=== PATIENT | female | born 1955 | race Caucasian/White ===

== ENCOUNTER 2016-10-26 08:37 | Day surgery (SDC) | payer OTHER, MEDICAID ==
[2016-10-26 09:29] LABS: HEMATOCRIT 36.7 % (36.0-47.0); HEMOGLOBIN 12.2 g/dL (12.0-15.5); HGB HCT DIFFERENCE -0.1; MEAN CORPUSCULAR HEMOGLOBIN 29.5 pg (27.0-33.4); MEAN CORPUSCULAR HGB CONC 33.2 g/dL (32.0-36.0); MEAN CORPUSCULAR VOLUME 89 fl (80-97); RED BLOOD COUNT 4.13 10^6/uL (3.72-5.28); RED CELL DISTRIBUTION WIDTH 16.3 % (11.5-14.0); WHITE BLOOD COUNT 3.1 10^3/uL (4.0-10.5)
[2016-10-26 09:40] LABS: PROTHROMBIN TIME 14.2 SEC (11.4-15.4)
[2016-10-26 09:41] LABS: PARTIAL THROMBOPLASTIN TIME 29.8 SEC (23.5-35.8)
[2016-10-26 09:48] LABS: BLOOD UREA NITROGEN 10 mg/dL (7-20); CREATININE RESULT 0.67 mg/dL (0.52-1.25)
[2016-10-26] MEDS ORDERED: MIDAZOLAM 2 MG/2 ML INJ ONE (11:27)
[2016-10-26] MEDS ORDERED: FENTANYL CITRATE INJ/PF 100 MCG/2 ML AMPUL ONE (11:28)
[2016-10-26 15:04] VITALS: BP 129/76
--- NOTE | 2016-10-27 08:24 | RADIOLOGY REPORT (SQ) ---
EXAM DESCRIPTION: CT BIOPSY BONE DEEP; CT NEEDLE PLACEMENT COMPLETED DATE/TIME: 10/26/2016 11:54 am; 10/26/2016 11:53 am REASON FOR STUDY: IMMUNE THROMBOCYTOPENIC PURPURA D69.3 IMMUNE THROMBOCYTOPENIC PURPURA COMPARISON: None. TECHNIQUE: CT guided biopsy of the pelvic bone marrow performed with conscious sedation. CT Fluoroscopy Time: 3.[address] scanners at this facility use dose modulation, iterative reconstruction, and/or weight based d osing when appropriate to reduce radiation dose to as low as reasonably achievable (ALARA). [facility]: Dose Right [facility]: CareDose [facility]: Dose Right [facility]: Teradose 4D [facility]: [facility] RADIATION DOSE: mGy. FINDINGS: The procedure was discussed with the patient and the patient agreed to the procedure. Prio r to the procedure, a time out was performed to verify the patient's identity and planned procedure. IV sedation was administered and physician direction by the registered nurse using 1 milligrams of Ve rsed and 75 micrograms of fentanyl. Physiologic monitoring was provided before, during, and after sed ation. The total sedation time was 35 minutes. Documentation face to face time, the performing proceduralist, spent monitoring the patient: [address] scanning was performed to localize the percutaneous site for the biopsy approach. After sterile skin prep and local lidocaine for skin and deep tissue anesthesia, a 14 gauge bone biop sy needle was used to obtain bone marrow aspirate and marrow core biopsy, received by Dr. Luann chau for outside interpretation. . There were no immediate complications. There were no immediate post biopsy or post sedation complications IMPRESSION: CT GUIDED BIOPSY OF THE RIGHT POSTERIOR ILIAC CREST BONE MARROW PERFORMED WITHOUT IMMEDI ATE COMPLICATION. PATHOLOGY PENDING. COMMENT: Quality ID 145: Final reports for procedures using fluoroscopy that document radiation exp osure indices, or exposure time and number of fluorographic images (if radiation exposure indices are not available) Patient medication list reviewed: Yes- Quality ID# [id number]:Eligible professional attests to documenting i n the medical record they obtained, updated, or reviewed the patient's current medications.. TECHNICAL DOCUMENTATION: JOB ID: [id number] Quality ID# [id number]: Final reports with documentation of one or more dose reduction techniques (e.g., Aut omated exposure control, adjustment of the mA and/or kV according to patient size, use of iterative r econstruction technique) 2010 [facility] [employer]- All Rights Reserved
== END 2016-10-26 14:05 | disposition home or self-care (01) ==
LOC: RAD 08:37
PROVIDERS: ATTEND Internal Medicine
PROC: 0QB23ZX Excision of Right Pelvic Bone, Percutaneous Approach, Diagnostic (ICD-10-PCS; principal; 2016-10-26)
DX: D69.3 Immune thrombocytopenic purpura (principal)
CPT/HCPCS: 36415; 82962; 84520; 82565; 85027; 85610; 85730; 77012; 20225; J2250; J3010

== ENCOUNTER 2016-12-07 08:52 | Day surgery (SDC) | payer OTHER, MEDICAID ==
[2016-12-07 09:33] LABS: PROTHROMBIN TIME 14.2 SEC (11.4-15.4)
[2016-12-07 09:34] LABS: PARTIAL THROMBOPLASTIN TIME 29.7 SEC (23.5-35.8)
[2016-12-07 09:47] LABS: BLOOD UREA NITROGEN 9 mg/dL (7-20); CREATININE RESULT 0.58 mg/dL (0.52-1.25)
[2016-12-07 09:48] LABS: HEMATOCRIT 37.8 % (36.0-47.0); HEMOGLOBIN 12.7 g/dL (12.0-15.5); HGB HCT DIFFERENCE 0.3; MEAN CORPUSCULAR HEMOGLOBIN 29.4 pg (27.0-33.4); MEAN CORPUSCULAR HGB CONC 33.7 g/dL (32.0-36.0); MEAN CORPUSCULAR VOLUME 88 fl (80-97); RED BLOOD COUNT 4.33 10^6/uL (3.72-5.28); RED CELL DISTRIBUTION WIDTH 15.8 % (11.5-14.0); WHITE BLOOD COUNT 3.7 10^3/uL (4.0-10.5)
[2016-12-07] MEDS ORDERED: MIDAZOLAM 2 MG/2 ML INJ ONE (10:55)
[2016-12-07] MEDS ORDERED: FENTANYL CITRATE INJ/PF 100 MCG/2 ML AMPUL ONE (10:55)
--- NOTE | 2016-12-07 13:18 | RADIOLOGY REPORT (SQ) ---
EXAM DESCRIPTION: CT BIOPSY LIVER; CT NEEDLE PLACEMENT COMPLETED DATE/TIME: 12/07/2016 12:17 pm REASON FOR STUDY: LIVER DISEASE UNSPECIFIED K76.89 OTHER SPECIFIED DISEASES OF LIVER D69.3 IMMUNE THROMBOCYTOPENIC PURPURA COMPARISON: None. TECHNIQUE: After obtaining informed consent, the patient was brought to the CT suite and was placed supine on the CT gurney. The patient was prepped and draped in the usual sterile fashion . Axial ly ges were obtained for targeting of theright lobe liver. An appropriate access site was selected. IV s edation was administered and physician direction by the registered nurse using 1 milligrams of Versed and 75 micrograms of fentanyl. Physiologic monitoring was provided before, during, and after sedatio n. The total sedation time was 30 minutes. Documentation face to face time, the performing proceduralist, spent monitoring the patient: 10minute s. Noncontrasted CT of the liver was performed to localize an approach for the right lobe liver biopsy. A percutaneous site was marked. Time out was performed. After skin prep and local lidocaine for skin and deep tissue anesthesia, a coaxial biopsy needle sys tem was used to obtain several cores of tissue from the right lobe liver. These were submitted to e lab in formalin. Biopsy tract was embolized with a Gelfoam plug. No immediate postprocedure compl ications. Total of 5.[address] fluoro was used. All CT scanners at this facility use dose modulation, iterative reconstruction, and/or weight based d osing when appropriate to reduce radiation dose to as low as reasonably achievable (ALARA). [facility]: Dose Right [facility]: CareDose [facility]: Dose Right [facility]: Teradose 4D [facility]: [employer] RADIATION DOSE: Up-to-date CT equipment and radiation dose reduction techniques were employed. CTDIv ol: 4.0 - 20.4 mGy. DLP: 501 mGy-cm. mGy. LIMITATIONS: None. FINDINGS: CT guided liver biopsy as detailed above. IMPRESSION: CT GUIDED RIGHT LOBE LIVER BIOPSY PERFORMED ABOVE. PATHOLOGY PENDING. NO IMMEDIATE COMPLICATIONS. COMMENT: Patient medication list reviewed:Yes- Quality ID# [id number]:Eligible professional attests to docu menting in the medical record they obtained, updated, or reviewed the patient's current medications.. Quality ID 145: Final reports for procedures using fluoroscopy that document radiation exposure [place], or exposure time and number of fluorographic images (if radiation exposure indices are not avail able) TECHNICAL DOCUMENTATION: JOB ID: [id number] Quality ID # [id number]: Final reports with documentation of one or more dose reduction techniques (e.g., A utomated exposure control, adjustment of the mA and/or kV according to patient size, use of iterative reconstruction technique) 2010 [employer]- All Rights Reserved
[2016-12-07 14:02] VITALS: BP 135/74
== END 2016-12-07 13:50 | disposition home or self-care (01) ==
LOC: RAD 08:52
PROVIDERS: ATTEND Internal Medicine
PROC: 0FB13ZX Excision of Right Lobe Liver, Percutaneous Approach, Diagnostic (ICD-10-PCS; principal; 2016-12-07)
DX: D69.3 Immune thrombocytopenic purpura (principal); K75.81 Nonalcoholic steatohepatitis (NASH); K74.0 Hepatic fibrosis
CPT/HCPCS: 36415; 82962; 84520; 82565; 85027; 85610; 85730; 88305 ×2; 88313 ×2; 77012; 47000; J2250; J3010

== ENCOUNTER 2017-01-04 17:27 | Emergency (ER) | payer OTHER, MEDICAID ==
[2017-01-04] MEDS ORDERED: OXYCODONE-ACETAMINOPHEN 5-325 MG TABLET PO ONE (18:38)
--- NOTE | 2017-01-04 18:41 | ER Document Report ---
ED Hand/Wrist Injury - General Chief Complaint: Wrist Injury Stated Complaint: ARM INJURY Mode of Arrival: Ambulatory Information source: Patient TRAVEL OUTSIDE OF THE [place] IN LAST 30 DAYS: No - HPI Injury to: Wrist Onset: Just prior to arrival Where: Home Timing: Constant Quality of pain: Achy Severity: Moderate Context: Fall Notes: Patient arrives with complaints of left wrist pain. She states that she was walking on a rotted apply board when her leg went through the board she fell and tried to catch herself with her left hand. She notes has tenderness and swelling to the left wrist. She denies striking her head. She denies loss of consciousness. She denies any other injuries. She denies any numbness, tingling, weakness. She has no other complaints at this time. - Related Data Allergies/Adverse Reactions: exenatide [From [place]] Allergy (Verified 01/04/17 17:44) Past Medical History - Social History Smoking Status: Former Smoker Chew tobacco use (# tins/day): No Frequency of alcohol use: None Drug Abuse: None Family History: Reviewed & Not Pertinent Patient has suicidal ideation: No - Past Medical History Cardiac Medical History: Reports: Hx Hypertension Denies: Hx Coronary Artery Disease, Hx Heart Attack Pulmonary Medical History: Reports: Hx Bronchitis, Hx COPD Denies: Hx Asthma, Hx Pneumonia Neurological Medical History: Denies: Hx Cerebrovascular Accident, Hx Seizures Endocrine Medical History: Reports: Hx Diabetes Mellitus Type 2 Renal/ Medical History: Denies: Hx Peritoneal Dialysis GI Medical History: Reports: Hx Gastroesophageal Reflux Disease Musculoskeltal Medical History: Reports Hx Arthritis Past Surgical History: Reports: Hx Hysterectomy, Hx Orthopedic Surgery - R Hand - Immunizations Immunizations up to date: Yes Hx Diphtheria, Pertussis, Tetanus Vaccination: Yes Hx Pneumococcal Vaccination: 12/24/14 Review of Systems - Review of Systems -: Yes All other systems reviewed and negative Physical Exam - Vital signs Vitals: Temp Pulse Resp BP Pulse Ox 98.3 F 99 24 H 136/82 H 97 01/04/17 17:46 01/04/17 17:46 01/04/17 17:46 01/04/17 17:46 01/04/17 17:46 - Notes Notes: GENERAL: alert, cooperative, nontoxic, no distress. HEAD: normocephalic, atraumatic EYES: conjunctiva pink without discharge, no external redness or swelling. EARS: no external swelling, no external redness NOSE: atraumatic, no external swelling MOUTH/THROAT: mucous membranes moist and pink NECK: soft, supple, full range of motion, no meningismus. CHEST: no distress, lungs clear and equal throughout. No wheezing, rales, rhonchi. CARDIAC: regular rate and rhythm, no murmur, normal capillary refill, normal pulses. BACK: full range of motion, no CVA tenderness. EXTREMITIES: Swelling and tenderness to palpation of the left wrist with possible mild deformity noted. No snuffbox tenderness. Normal pulse and sensation distally. Slightly limited range of motion secondary to pain. No redness. NEURO: alert and oriented 3, no focal deficits, full range of motion of all extremities. PYSCH: appropriate mood, affect. Patient is cooperative. SKIN: pink, warm, dry, no rash. Course - Re-evaluation Re-evalutation: 01/04/17 19:19 Patient is nontoxic appearing with stable vitals. The patient fell and caught herself with her left hand causing an injury to the left wrist. She denies any other injuries. She is noted to have some swelling and tenderness to the wrist. No snuffbox tenderness. There is no redness or signs of infection. Her compartments are soft. X-rays show no acute fracture per the radiologist. The patient will be placed in a Velcro cock-up splint. Follow-up with her orthopedist if not better in 1 week, sooner for increased pain, fever, redness, any further concerns. She was instructed to rest, ice, elevate her wrist. 01/04/17 19:20 The patient is noted to have elevated blood pressure during today's emergency department visit. The patient was informed of this finding. The patient was instructed that this may be related to pre-hypertension and requires further evaluation with a primary care provider. The patient has no hypertensive symptoms at this time. The patient's emergency department workup and current diagnosis were explained to the patient and or family. Follow-up instructions were provided. Medications if prescribed were discussed. Instructions for when to return to the emergency department including specific worrisome symptoms were discussed with the patient and/or family. - Vital Signs Vital signs: Temp Pulse Resp BP Pulse Ox 98.3 F 99 24 H 136/82 H 97 01/04/17 17:46 01/04/17 17:46 01/04/17 17:46 01/04/17 17:46 01/04/17 17:46 - Diagnostic Test Radiology reviewed: Image reviewed, Reports reviewed - No acute fracture of the left wrist Procedures - Immobilization Left wrist Pre-Proc Neuro Vasc Exam: Normal Immobilizer type: Cock-up Performed by: PCT Post-Proc Neuro Vasc Exam: Normal Alignment checked and good: Yes Discharge - Discharge Clinical Impression: Left wrist sprain Qualifiers: Encounter type: initial encounter Qualified Code(s): S63.502A - Unspecified sprain of left wrist, initial encounter Condition: Stable Disposition: HOME, SELF-CARE Instructions: Wrist Sprain ([facility]) Additional Instructions: Wear splint as needed for comfort. Rest, ice, elevate your wrist as needed for pain. Take your normal Percocet as needed for pain. Follow-up with your orthopedist if not better in 1 week, sooner for increased pain, fever, weakness , or any further concerns. Your blood pressure was elevated during today's visit. Have this rechecked with your doctor. Forms: Elevated Blood Pressure Referrals: [facility] [Provider Group] - Follow up as needed
--- NOTE | 2017-01-04 19:10 | RADIOLOGY REPORT (SQ) ---
EXAM DESCRIPTION: WRIST LEFT 3 VIEWS COMPLETED DATE/TIME: 01/04/2017 6:48 pm REASON FOR STUDY: PAIN COMPARISON: None. NUMBER OF VIEWS: Three views. TECHNIQUE: AP, lateral, and oblique radiographic images acquired of the left wrist. LIMITATIONS: None. FINDINGS: MINERALIZATION: Normal. BONES: No acute fracture or dislocation. No worrisome bone lesions. Normal alignment. SOFT TISSUES: No soft tissue swelling. No foreign body. OTHER: No other significant finding. IMPRESSION: NEGATIVE STUDY OF THE LEFT WRIST. NO RADIOGRAPHIC EVIDENCE OF ACUTE INJURY. TECHNICAL DOCUMENTATION: JOB ID: [id number] [employer]- All Rights Reserved
[2017-01-04 19:58] VITALS: BP 141/75
== END 2017-01-04 19:49 | disposition home or self-care (01) ==
LOC: ER 17:27
DX: S63.502A Unspecified sprain of left wrist, initial encounter (principal); W13.3XXA Fall through floor, initial encounter; Y92.009 Unspecified place in unspecified non-institutional (private) residence as the place of occurrence of the external cause; M25.532 Pain in left wrist; J44.9 Chronic obstructive pulmonary disease, unspecified; I10 Essential (primary) hypertension; E11.9 Type 2 diabetes mellitus without complications; Z88.8 Allergy status to other drugs, medicaments and biological substances; Z87.891 Personal history of nicotine dependence
CPT/HCPCS: 99283; 73110; L3908 ×2

== ENCOUNTER → 2017-05-31 | Day surgery (SDC) | payer OTHER, MEDICAID ==
[~2017-05-31] MED LIST: BUPIVACAINE HCL 0.5 % INJ/PF 30 ML SDV ONE
--- NOTE | 2017-05-31 10:02 | Operative Report ---
PROCEDURE: KNEE RADIOFREQUENCY right under ultrasound guidance Preoperative Diagnosis: Right knee osteoarthritis Postoperative Diagnosis: Right knee osteoarthritis 1. Superolateral genicular branch from the vastus lateralis 2. Superomedial genicular branch from the vastus medialis 3. Inferomedial genicular branch from the saphenous nerve 4. Medial retinacular branch from the vastus intermedius DATE OF PROCEDURE: May 31, 2017 ANESTHESIA: Local anesthesia COMPLICATIONS: None reported PROCEDURE IN DETAIL: Hx/PE/meds/allergies/applicable labs reviewed. No changes and no contraindications were found. Full description of the procedure was provided including benefits as well as possible complications including transient increased pain, stomach irritation, mood alteration, transient weakness or parasthesias as well as more serious nerve injury, bleeding, infection or allergic reaction. Informed consent was obtained and documented. The patient was brought to the procedure room and placed on the exam table in a comfortable supine position. The place for needle placement was obtained by manual palpation with ultrasound confirmation. The sterile field was prepared by chloroprep and sterile drapes. Local anesthesia superficial and deep was provided by local infiltration of 2% lidocaine. A 17g 50 mm radiofrequency introducer needle with a 4 mm active tip was placed overlying the right knee joint and using ultrasound guidance the needle was advanced to a bony endpoint on the superiolateral portion of the femoral condyle of the right knee. A second needle was advanced to a bony endpoint on the superiomedial portion of the femoral condyle. A third needle was then placed over the inferiomedial portion of the tibial condyle until a bony endpoint was met. 4th needle placed 3mm above the patella. Attempted aspiration yielded no blood. Transverse ultrasound views showed all the needles at 50% depth of the femur and tibia. Motor stimulation was tested at 2.0 volts with no leg movement. Images were saved in AP and lateral. A mixture consisting of 0.5% bupivacaine was slowly injected. Then a radiofrequency ablation of each of the geniculate nerves were done at 80 degrees Celsius for 2 minutes and 30 seconds each. The needles were withdrawn. The patient tolerated the procedure well. After observation the patient was discharged with instructions and follow up. They were also provided contact information to call regarding any concerning symptoms or questions. IMPRESSION: 1. Successful geniculate right knee radiofrequency ablation was performed. 2. The patient was given prescription of home medicines. 3. RTC in 1-2 week(s).
== END ==
LOC: RAD 08:31
PROVIDERS: ATTEND Family Medicine
PROC: 3E0T3TZ Introduction of Destructive Agent into Peripheral Nerves and Plexi, Percutaneous Approach (ICD-10-PCS; principal; 2017-05-31)
DX: M17.11 Unilateral primary osteoarthritis, right knee (principal)
CPT/HCPCS: 64640 ×3; J3490

== ENCOUNTER 2017-08-13 07:46 | Inpatient (IN) | payer OTHER, MEDICAID ==
--- NOTE | 2017-08-10 13:09 | Physician Advisory Note ---
Physician Advisor ProgressNote .: [facility] I have reviewed the medical record for this patient. Physician Advisor Statement: "Surgical necessity": Nonsurgical options tried, ADLs interfered with, & exam findings are nicely documented in H&P. Attending, please document the specific pre-op x-ray/scan findings present that [facility] looks for: subchondral cysts, subchondral sclerosis, periarticular osteophytes, joint space narrowing, joint subluxation, AVN/osteonecrosis, to support the reasoning that [facility] should pay for surgery in this case. Status: 61yo with DM/HTN/morbid obesity, having trouble with walking & getting in/out car, not sufficiently improved by NSAIDS, oxycodone 10mg, Voltaren topical, cortisone injections, & ablation. Per pre-op nurse review notes, she is extremely limited in her overall function, and is expected to require SNF rehab after surgery. Therefore, per current [facility] guidelines, appropriate for TKA as Inpatient. Thanks! CK
[~2017-08-13 07:46] MED LIST changes: +ACETAMINOPHEN 100 ML IV ONE; -BUPIVACAINE HCL 0.5 % INJ/PF 30 ML SDV ONE; +BUPIVACAINE INJ/PF LIPOSOME/PF 266 MG/20 ML SDV IJ PRN; +CEFAZOLIN INJ 1 GM VIAL IV PRN; +DEXAMETHASONE SOD PHOSPHATE INJ 4 MG/1 ML VIAL ONE; +FENTANYL CITRATE INJ/PF 100 MCG/2 ML AMPUL ONE; +IBUPROFEN 800 MG/NS 250 ML IV PRN; +LACTATED RINGERS 1000 ML IV PRN; +LANSOPRAZOLE 15 MG TAB.RAP.DR PO PRN; +LIDOCAINE 0.5% INJ-PF (5 MG/ML) 50 ML SDV SUBCUT PRN; +LIDOCAINE 2% INJ-PF (20 MG/ML) 10 ML AMPUL ONE; +METOCLOPRAMIDE HCL INJ/PF 10 MG/2 ML SDV ONE; +MIDAZOLAM 2 MG/2 ML INJ ONE; +ONDANSETRON HCL INJ/PF 4 MG/2 ML SDV ONE; +OXYCODONE HCL SR 10 MG TABLET PO PRN; +PROPOFOL INJ 200 MG/20 ML VIAL IV ONE; +TETRACAINE HCL/PF 20MG/2ML AMPULE (SPINAL) ONE; +VANCOMYCIN HCL 1,000 MG in DEXTROSE 5%-WATER 250 ML IV PRN
[2017-08-13] MEDS ORDERED: THROMBIN (BOVINE) 5000 UNIT EPITAXIS KIT ONE (09:09)
[2017-08-13] MEDS ORDERED: THROMBIN (BOVINE) TOPICAL 20000 UNIT VIAL ONE (09:09)
[2017-08-13] MEDS ORDERED: BUPIVACAINE INJ/PF LIPOSOME/PF 266 MG/20 ML SDV ONE (09:09)
[2017-08-13] MEDS ORDERED: ALBUTEROL SULFATE 0.083% NEB 2.5 MG/3 ML AMPUL NEB ONE (09:26)
[2017-08-13] MEDS ORDERED: FENTANYL CITRATE INJ/PF 100 MCG/2 ML AMPUL ONE ×2 (10:43→10:44)
[2017-08-13] MEDS ORDERED: FENTANYL CITRATE INJ/PF 100 MCG/2 ML AMPUL IV PRN ×3 (10:50)
[2017-08-13] MEDS ORDERED: PROMETHAZINE HCL INJ 25 MG/1 ML VIAL IV PRN ×2 (10:50)
[2017-08-13] MEDS ORDERED: MORPHINE SULFATE 10 MG/ML INJ IV PRN ×3 (10:50→11:13)
[2017-08-13] MEDS ORDERED: MEPERIDINE HCL/PF INJ 25 MG/1 ML DISP.SYRIN IV PRN (10:50)
[2017-08-13] MEDS ORDERED: ONDANSETRON HCL INJ/PF 4 MG/2 ML SDV IV PRN ×3 (10:50→15:00)
[2017-08-13] MEDS ORDERED: DIPHENHYDRAMINE HCL 50 MG/ML VIAL IV PRN ×2 (10:50→11:13)
--- NOTE | 2017-08-13 11:12 | Operative Report ---
Operative Report DATE OF SURGERY: 08/13/17 PREOPERATIVE DIAGNOSIS: Right knee arthritis OPERATION: Right knee arthroplasty SURGEON: ARLETTE BRADY ANESTHESIA: GA TISSUE REMOVED OR ALTERED: Bone to pathology ESTIMATED BLOOD LOSS: 150 PROCEDURE: Implants used: Femur: Philpot triathlon size 5 CR femur Tibia: 4 tibia Tibial liner: 9 mm CS spacer Patella: 32 mm oval patella Procedure with the patient supine on the operating table the right the limb is prepped and draped in a sterile fashion. The limb was elevated for exsanguination and the tourniquet inflated to 280 torr. A standard midline median parapatellar approach the knee is taken. Access is gained to the femoral canal through the intercondylar notch. Intramedullary alignment instrumentation used to resect 10 mm of distal femur in 5 of valgus. Sizing guide indicated a size 5 femur. Appropriate cutting jig is then used to fashion anterior posterior and chamfer cuts. A trial reduction femurs performed and this is judged to be adequate. Attention was next turned to the tibia. Using an extra medullary alignment system 9 millimeters was resected off the lateral tibial plateau. This is sized to a size 4 tibia. A trial reduction was now performed with a 5 femur and a for tibia using a 9 millimeters spacer. It is full extension and central patellofemoral tracking. The articular surface the patella was next resected using an oscillating saw. All trial implants were removed. Polymethylmethacrylate is mixed and used to cement the above implants in place. On adequate curing the cement excess cement was removed the tourniquet was deflated hemostasis obtained the wound is then closed in layers using interrupted Vicryl followed by bob. A sterile compressive dressing was applied and the patient returned to recovery room in satisfactory condition.
[2017-08-13] MEDS ORDERED: ONDANSETRON 4 MG TAB.RAPDIS PO PRN ×2 (11:13→15:00)
[2017-08-13] MEDS ORDERED: ACETAMINOPHEN 325 MG TABLET PO PRN (11:13)
[2017-08-13] MEDS ORDERED: MAG HYDROX/AL HYDROX/SIMETH SUSP 30 ML UDCUP PO PRN (11:13)
[2017-08-13] MEDS ORDERED: RINGERS SOLUTION,LACTATED 1,000 ML IV PRN (11:13)
[2017-08-13] MEDS: FENTANYL CITRATE INJ/PF 100 MCG/2 ML AMPUL ONE ×2 (11:45→11:50)
[2017-08-13] MEDS ORDERED: LORAZEPAM INJ 2 MG/1 ML VIAL ONE (12:00)
--- NOTE | 2017-08-13 12:14 | RADIOLOGY REPORT (SQ) ---
EXAM DESCRIPTION: KNEE RIGHT 2 VIEWS COMPLETED DATE/TIME: 08/13/2017 11:57 am REASON FOR STUDY: Post OP -Long Cassette in PACU M17.11 UNILATERAL PRIMARY OSTEOARTHRITIS, RIGHT KN EE COMPARISON: None. NUMBER OF VIEWS: AP and lateral portable films TECHNIQUE: Digital radiographic images of the right knee post-procedure. LIMITATIONS: None. FINDINGS: BONES: No worrisome or unexpected findings post-procedure. DEVICE: Right total knee replacement with patellar resurfacing SOFT TISSUES: No worrisome findings. Expected postoperative soft tissue changes. IMPRESSION: SATISFACTORY POSTOPERATIVE RIGHT KNEE. TECHNICAL DOCUMENTATION: JOB ID: [id number] [employer]- All Rights Reserved Reading location - IP/workstation name: [email or web address]
[2017-08-13] MEDS ORDERED: TRANEXAMIC ACID INJ/PF 1,000 MG/10 ML SDV IV ONE ×2 (12:29→13:00)
[2017-08-13] MEDS ORDERED: ASPIRIN 81 MG TABLET, ENT COATED PO ONE (13:00)
[2017-08-13] MEDS ORDERED: DEXTROSE 50%-WATER SYRINGE 25 GM/50 ML DOSE IV PRN (13:25)
[2017-08-13] MEDS ORDERED: DEXTROSE 40% GEL 15 GM TUBE X 2 PO PRN (13:25)
[2017-08-13] MEDS ORDERED: DEXTROSE 40% GEL 15 GM TUBE PO PRN (13:25)
[2017-08-13] MEDS ORDERED: DEXTROSE 50%-WATER SYRINGE 12.5 GM/25 ML DOSE IV PRN (13:25)
[2017-08-13] MEDS ORDERED: GLUCAGON,HUMAN RECOMB 1 MG INJ IM PRN (13:25)
[2017-08-13] MEDS: PREGABALIN 100 MG CAPSULE PO SCH ×2 (14:23→18:34)
[2017-08-13] MEDS: MORPHINE SULFATE 10 MG/ML INJ IM PRN ×3 (15:05→20:50)
[2017-08-13] MEDS: INSULIN LISPRO 100 UNIT/ML 3 ML VIAL SUBCUT PRN ×3 (17:12→23:19)
[2017-08-13] MEDS: OXYCODONE HCL IR 5 MG TABLET PO PRN (17:13)
[2017-08-13] MEDS: SENNOSIDES/DOCUSATE 8.6-50 MG 1 EACH TABLET PO SCH (18:34)
[2017-08-13] MEDS: OXYCODONE HCL SR 10 MG TABLET PO SCH (22:21)
[2017-08-13] MEDS: IBUPROFEN 800 MG in NORMAL SALINE 250 ML IV SCH (22:21)
[2017-08-13] MEDS ORDERED: VANCOMYCIN HCL 1,000 MG in DEXTROSE 5%-WATER 250 ML IV ONE (23:13)
[2017-08-14] MEDS: MORPHINE SULFATE 10 MG/ML INJ IV PRN (03:57)
[2017-08-14] MEDS: LANSOPRAZOLE 30 MG TAB.RAP.DR PO SCH (06:03)
[2017-08-14] MEDS: OXYCODONE HCL IR 5 MG TABLET PO PRN ×2 (06:03→13:23)
[2017-08-14] MEDS: IBUPROFEN 800 MG in NORMAL SALINE 250 ML IV SCH ×3 (06:04→21:40)
[2017-08-14] MEDS: INSULIN LISPRO 100 UNIT/ML 3 ML VIAL SUBCUT PRN ×3 (06:46→17:52)
[2017-08-14 07:14] LABS: HEMATOCRIT 32.8 % (36.0-47.0); HEMOGLOBIN 10.8 g/dL (12.0-15.5); MEAN CORPUSCULAR HEMOGLOBIN 29.4 pg (27.0-33.4); MEAN CORPUSCULAR VOLUME 89 fl (80-97); RED BLOOD COUNT 3.68 10^6/uL (3.72-5.28); RED CELL DISTRIBUTION WIDTH 16.1 % (11.5-14.0); WHITE BLOOD COUNT 7.2 10^3/uL (4.0-10.5)
--- NOTE | 2017-08-14 07:25 | PDOC PROGRESS REPORT ---
Subjective Progress Note for:: 08/14/17 Reason For Visit: M17.11 UNILATERAL PRIMARY OSTEOARTHRITIS, RIGHT KN 61-year-old white female postop day 1 from right knee arthroplasty. Limited progress with physical therapy yesterday. Physical Exam Vital Signs: Temp Pulse Resp BP Pulse Ox 37.0 C 109 H 16 144/75 H 94 08/13/17 23:00 08/13/17 23:00 08/13/17 23:00 08/13/17 23:00 08/13/17 23:00 Intake & Output 08/13/17 08/14/17 08/15/17 06:59 06:59 06:59 Intake Total 3072 Output Total 1999 Balance 1072 Weight 118.7 kg General appearance: PRESENT: no acute distress, obese Head exam: PRESENT: normocephalic Respiratory exam: PRESENT: unlabored Cardiovascular exam: PRESENT: RRR Pulses: PRESENT: +1 pedal pulses bilateral Vascular exam: PRESENT: normal capillary refill GI/Abdominal exam: PRESENT: soft Rectal exam: PRESENT: deferred Extremities exam: PRESENT: other - Right knee dressing change today. Wound is well approximated with bob. Minimal erythema. Scant serosanguineous drainage. Neurological exam: PRESENT: alert, awake, oriented to person, oriented to place , oriented to time, oriented to situation. ABSENT: motor sensory deficit Psychiatric exam: PRESENT: appropriate affect, normal mood. ABSENT: homicidal ideation, suicidal ideation Skin exam: PRESENT: dry, intact, warm. ABSENT: cyanosis, rash Results Impressions: Knee X-Ray 08/13/17 11:14 IMPRESSION: SATISFACTORY POSTOPERATIVE RIGHT KNEE. Status: Imported from PACS Assessment & Plan - Diagnosis (1) Arthritis of right knee Is this a current diagnosis for this admission?: Yes Plan: Patient to continue with postoperative physical therapy for rehabilitation. Anticipate discharge home tomorrow with home health services - Time Time Spent with patient: 15-24 minutes Anticipated discharge: Home with Homehealth Within: within 24 hours
[2017-08-14 07:32] LABS: ANION GAP 14 (5-19); BLOOD UREA NITROGEN 15 mg/dL (7-20); CALCIUM 8.4 mg/dL (8.4-10.2); CARBON DIOXIDE 28 mmol/L (22-30); CHLORIDE 96 mmol/L (98-107); GLUCOSE 336 mg/dL (75-110); POTASSIUM 4.5 mmol/L (3.6-5.0)
[2017-08-14 07:47] LABS: PLATELET COUNT 97 10^3/uL (150-450)
[2017-08-14] MEDS: PREGABALIN 100 MG CAPSULE PO SCH ×3 (09:23→17:52)
[2017-08-14] MEDS: SENNOSIDES/DOCUSATE 8.6-50 MG 1 EACH TABLET PO SCH ×2 (09:23→17:51)
[2017-08-14] MEDS: OXYCODONE HCL SR 10 MG TABLET PO SCH ×2 (09:24→21:40)
[2017-08-14] MEDS: PRENATAL VITAMIN W DHA CAPSULE PO SCH (09:24)
[2017-08-14] MEDS: MORPHINE SULFATE 10 MG/ML INJ IM PRN ×4 (11:36→23:13)
[2017-08-14] MEDS: ASPIRIN 81 MG TABLET, ENT COATED PO SCH (17:33)
[2017-08-14] MEDS: INSULIN NPH (ISOPHANE), HUMAN 100 UNIT/ML 3 ML SUBCUT SCH (21:27)
[2017-08-14] MEDS: ZOLPIDEM TARTRATE 5 MG TABLET PO PRN (21:40)
[2017-08-15] MEDS: IBUPROFEN 800 MG in NORMAL SALINE 250 ML IV SCH ×3 (05:47→21:19)
[2017-08-15] MEDS: LANSOPRAZOLE 30 MG TAB.RAP.DR PO SCH (05:47)
[2017-08-15 06:01] LABS: HEMATOCRIT 27.8 % (36.0-47.0); HEMOGLOBIN 9.2 g/dL (12.0-15.5); MEAN CORPUSCULAR HEMOGLOBIN 29.7 pg (27.0-33.4); MEAN CORPUSCULAR HGB CONC 33.3 g/dL (32.0-36.0); MEAN CORPUSCULAR VOLUME 89 fl (80-97); RED BLOOD COUNT 3.11 10^6/uL (3.72-5.28); RED CELL DISTRIBUTION WIDTH 15.8 % (11.5-14.0); WHITE BLOOD COUNT 5.6 10^3/uL (4.0-10.5)
[2017-08-15 06:27] LABS: PLATELET COUNT 86 10^3/uL (150-450)
--- NOTE | 2017-08-15 07:14 | PDOC PROGRESS REPORT ---
Subjective Progress Note for:: 08/15/17 Reason For Visit: M17.11 UNILATERAL PRIMARY OSTEOARTHRITIS, RIGHT KN 61-year-old white female male now postop day 2 from right knee arthroplasty. Patient is quite angry this morning stating that she is not getting adequate pain relief and is not sleeping. Physical Exam Vital Signs: Temp Pulse Resp BP Pulse Ox 37.1 C 117 H 18 123/60 97 08/15/17 03:53 08/15/17 03:53 08/15/17 03:53 08/15/17 03:53 08/15/17 03:53 Intake & Output 08/14/17 08/15/17 08/16/17 06:59 06:59 06:59 Intake Total 3696 1716 Output Total 1999 100 Balance 1696 1616 Weight 118.7 kg 118.4 kg General appearance: PRESENT: no acute distress, mild distress Head exam: PRESENT: normocephalic Respiratory exam: PRESENT: unlabored Cardiovascular exam: PRESENT: RRR Extremities exam: PRESENT: other - Right knee dressing is into this morning. Wound edges are well approximated with bob. There is no erythema. There is scant serosanguineous drainage at the distal third of the incision. Neurological exam: PRESENT: alert, awake, oriented to person, oriented to place , oriented to time, oriented to situation. ABSENT: motor sensory deficit Psychiatric exam: PRESENT: agitated Skin exam: PRESENT: dry, intact, warm. ABSENT: cyanosis, rash Results Laboratory Results: 08/15/17 04:40 08/14/17 06:16 08/14/17 08/14/17 08/15/17 06:16 06:16 04:40 WBC 7.2 5.6 RBC 3.68 L 3.11 L Hgb 10.8 L 9.2 L Hct 32.8 L 27.8 L MCV 89 89 MCH 29.4 29.7 MCHC 33.0 33.3 RDW 16.1 H 15.8 H Plt Count 97 L 86 L Sodium 138.0 Potassium 4.5 Chloride 96 L Carbon Dioxide 28 Anion Gap 14 BUN 15 Creatinine 0.51 L Est GFR ( Amer) > 60 Est GFR (Non-Af Amer) > 60 Glucose 336 H Calcium 8.4 Impressions: Knee X-Ray 08/13/17 11:14 IMPRESSION: SATISFACTORY POSTOPERATIVE RIGHT KNEE. Status: Imported from PACS Assessment & Plan - Diagnosis (1) Arthritis of right knee Is this a current diagnosis for this admission?: Yes Plan: 61-year-old white female postop day 2 from right knee arthroplasty. Patient states this morning that she has nobody at home and is [facility] in a [facility] facility. Social work has been consulted for this. - Time Time Spent with patient: 15-24 minutes Anticipated discharge: SNF Within: within 24 hours, when bed available
[2017-08-15] MEDS: INSULIN LISPRO 100 UNIT/ML 3 ML VIAL SUBCUT PRN ×3 (08:24→17:41)
[2017-08-15] MEDS: INSULIN NPH (ISOPHANE), HUMAN 100 UNIT/ML 3 ML SUBCUT SCH ×2 (10:13→21:18)
[2017-08-15] MEDS: PREGABALIN 100 MG CAPSULE PO SCH ×3 (10:14→17:42)
[2017-08-15] MEDS: OXYCODONE HCL SR 10 MG TABLET PO SCH (10:14)
[2017-08-15] MEDS: PRENATAL VITAMIN W DHA CAPSULE PO SCH (10:14)
[2017-08-15] MEDS: SENNOSIDES/DOCUSATE 8.6-50 MG 1 EACH TABLET PO SCH ×2 (10:14→17:43)
[2017-08-15] MEDS: OXYCODONE HCL IR 5 MG TABLET PO PRN ×2 (14:27→21:19)
[2017-08-15] MEDS: ASPIRIN 81 MG TABLET, ENT COATED PO SCH (17:43)
[2017-08-15] MEDS: MORPHINE SULFATE 10 MG/ML INJ IM PRN ×2 (20:10→23:54)
[2017-08-15] MEDS: ZOLPIDEM TARTRATE 5 MG TABLET PO PRN (21:18)
[2017-08-16] MEDS: MORPHINE SULFATE 10 MG/ML INJ IM PRN ×3 (02:27→17:17)
[2017-08-16 05:14] LABS: HEMATOCRIT 27.7 % (36.0-47.0); HEMOGLOBIN 9.3 g/dL (12.0-15.5); MEAN CORPUSCULAR HEMOGLOBIN 29.9 pg (27.0-33.4); MEAN CORPUSCULAR HGB CONC 33.6 g/dL (32.0-36.0); MEAN CORPUSCULAR VOLUME 89 fl (80-97); RED BLOOD COUNT 3.11 10^6/uL (3.72-5.28); RED CELL DISTRIBUTION WIDTH 15.9 % (11.5-14.0); WHITE BLOOD COUNT 4.7 10^3/uL (4.0-10.5)
[2017-08-16] MEDS: IBUPROFEN 800 MG in NORMAL SALINE 250 ML IV SCH ×2 (05:17→14:04)
[2017-08-16] MEDS: LANSOPRAZOLE 30 MG TAB.RAP.DR PO SCH (05:17)
[2017-08-16 05:36] LABS: PLATELET COUNT 93 10^3/uL (150-450)
--- NOTE | 2017-08-16 06:48 | PDOC TRANSFER SUMMARY ---
General - Admit/Disc Date/PCP Admission Date/Primary Care Provider: 08/13/17 07:46 DAMIEN ANNA MD Discharge Date: 08/16/17 - Discharge Diagnosis (1) Arthritis of right knee Is this a current diagnosis for this admission?: Yes - Additional Information Resuscitation Status: Full Code Discharge Diet: As Tolerated, Regular Discharge Activity: Balance Activity w/Rest, No Driving, No tub bath Home Medications: Cyclobenzaprine HCl 10 mg PO BID PRN 11/23/15 Diclofenac Sodium [Voltaren] 100 gm TP DAILY 11/23/15 Insulin Aspart [Novolog Flexpen] 0 unit SUBCUT .SLD SCALE PRN 11/23/15 Liraglutide [Victoza 2-Cornelio] 1.8 units DAILY 11/23/15 Oxycodone HCl 10 mg PO Q4 PRN 11/23/15 Trazodone HCl 100 mg PO DAILYP PRN 11/23/15 Pregabalin [Lyrica] 100 mg PO TID 10/26/16 Ipratropium/Albuterol Sulfate [Combivent Respimat 4 gm Mdi] 1 puff PO DAILY 01/10 Insulin NPH Human Isophane [Humulin N] 65 unit SQ BID 08/13/17 Aspirin [Ecotrin 81 mg EC Tablet] 81 mg PO QPM tabec 08/16/17 Oxycodone HCl [Oxy-Ir 5 mg Tablet] 5 mg PO Q6HP PRN tablet 08/16/17 History of Present Illness Admission Date/PCP: 08/13/17 07:46 DAMIEN ANNA MD History of Present Illness: AUSTYN RODRIGUEZ is a 61 year old female with progressive right knee pain and functional disability secondary osteoarthritis. Patient is admitted for elective right knee arthroplasty. Hospital Course Hospital Course: Patient is admitted through the operating room where she undergoes uncomplicated right knee arthroplasty. She is returned to floor in satisfactory condition. She makes some progress with physical therapy. Complaints of pain and inadequate analgesia persists throughout her hospitalization in spite of adjustment and increases in her narcotic prescription. Physical Exam Vital Signs: Temp Pulse Resp BP Pulse Ox 37.0 C 117 H 24 H 147/80 H 100 08/15/17 23:42 08/15/17 23:42 08/15/17 23:42 08/15/17 23:42 08/15/17 23:42 Intake & Output 08/14/17 08/15/17 08/16/17 06:59 06:59 06:59 Intake Total 3696 1716 992 Output Total 1999 Balance 1696 1616 992 Weight 118.7 kg 118.4 kg 118.4 kg General appearance: PRESENT: mild distress, obese Head exam: PRESENT: normocephalic Respiratory exam: PRESENT: unlabored Cardiovascular exam: PRESENT: RRR Pulses: PRESENT: +1 pedal pulses bilateral Vascular exam: PRESENT: normal capillary refill GI/Abdominal exam: PRESENT: soft Rectal exam: PRESENT: deferred Extremities exam: PRESENT: other - Right knee dressing clean dry and intact. Minimal pedal edema. Distal neurovascular examination is intact. Neurological exam: PRESENT: alert, awake, oriented to person, oriented to place , oriented to time, oriented to situation. ABSENT: motor sensory deficit Psychiatric exam: PRESENT: agitated, appropriate affect, normal mood. ABSENT: homicidal ideation, suicidal ideation Skin exam: PRESENT: dry, intact, warm. ABSENT: cyanosis, rash Results Laboratory Results: 08/16/17 04:35 08/14/17 06:16 08/16/17 04:35 WBC 4.7 RBC 3.11 L Hgb 9.3 L Hct 27.7 L MCV 89 MCH 29.9 MCHC 33.6 RDW 15.9 H Plt Count 93 L Impressions: Knee X-Ray 08/13/17 11:14 IMPRESSION: SATISFACTORY POSTOPERATIVE RIGHT KNEE. Status: Imported from PACS Transfer Plan - Disposition Transfer Plan: Patient to be transferred to a snf facility for ongoing snf care and physical therapy. Physical therapy was focused on range of motion, strengthening, and weightbearing as tolerated ambulation. Follow-up with Dr. Mcfarland and [facility] for surgery in 2 weeks for staple removal. - Time Spent with Patient Time spent with patient: Less than 30 Minutes Qualifiers - * PATIENT BEING DISCHARGED WITH ANY OF THE FOLLOWING DIAGNOSIS: No VTE patient discharged on overlapping Therapy?: Yes
[2017-08-16] MEDS: OXYCODONE HCL IR 5 MG TABLET PO PRN ×3 (07:54→21:13)
[2017-08-16] MEDS: INSULIN NPH (ISOPHANE), HUMAN 100 UNIT/ML 3 ML SUBCUT SCH ×2 (10:59→21:13)
[2017-08-16] MEDS: PRENATAL VITAMIN W DHA CAPSULE PO SCH (11:00)
[2017-08-16] MEDS: PREGABALIN 100 MG CAPSULE PO SCH ×3 (11:00→17:17)
[2017-08-16] MEDS: SENNOSIDES/DOCUSATE 8.6-50 MG 1 EACH TABLET PO SCH ×2 (11:01→17:09)
[2017-08-16] MEDS: INSULIN LISPRO 100 UNIT/ML 3 ML VIAL SUBCUT PRN ×2 (14:04→21:13)
[2017-08-16] MEDS: ASPIRIN 81 MG TABLET, ENT COATED PO SCH (17:15)
[2017-08-16] MEDS: ZOLPIDEM TARTRATE 5 MG TABLET PO PRN (21:13)
[2017-08-17] MEDS: OXYCODONE HCL IR 5 MG TABLET PO PRN ×3 (02:33→19:33)
[2017-08-17] MEDS: MORPHINE SULFATE 10 MG/ML INJ IM PRN ×7 (04:21→23:34)
[2017-08-17] MEDS: LANSOPRAZOLE 30 MG TAB.RAP.DR PO SCH (05:18)
--- NOTE | 2017-08-17 06:44 | PDOC PROGRESS REPORT ---
Subjective Progress Note for:: 08/17/17 Reason For Visit: M17.11 UNILATERAL PRIMARY OSTEOARTHRITIS, RIGHT KN 61-year-old white female postop day 4 from right knee arthroplasty. Patient continues to complain of pain and require parenteral narcotics. Pain precluded her participation in physical therapy yesterday. The patient is quite anxious to get up and show me how she walks with a walker this morning. Physical Exam Vital Signs: Temp Pulse Resp BP Pulse Ox 36.9 C 105 H 16 116/77 95 08/16/17 23:48 08/16/17 23:48 08/16/17 23:48 08/16/17 23:48 08/16/17 23:48 Intake & Output 08/15/17 08/16/17 08/17/17 06:59 06:59 06:59 Intake Total 1716 992 913 Output Total 100 Balance 1616 992 913 Weight 118.4 kg 118.4 kg 118 kg General appearance: PRESENT: no acute distress Head exam: PRESENT: normocephalic Respiratory exam: PRESENT: unlabored Cardiovascular exam: PRESENT: RRR Pulses: PRESENT: +1 pedal pulses bilateral GI/Abdominal exam: PRESENT: soft Rectal exam: PRESENT: deferred Extremities exam: PRESENT: other - Considerable ecchymosis over the right thigh. Right knee dressing is changed. Wound is well approximated with bob. Is clean dry and intact. Minor pedal edema. Distal neurovascular examination is intact. Neurological exam: PRESENT: alert, awake, oriented to person, oriented to place , oriented to time, oriented to situation. ABSENT: motor sensory deficit Psychiatric exam: PRESENT: appropriate affect, normal mood. ABSENT: homicidal ideation, suicidal ideation Skin exam: PRESENT: dry, intact, warm. ABSENT: cyanosis, rash Results Laboratory Results: 08/16/17 04:35 08/14/17 06:16 Impressions: Knee X-Ray 08/13/17 11:14 IMPRESSION: SATISFACTORY POSTOPERATIVE RIGHT KNEE. Status: Imported from PACS Assessment & Plan - Diagnosis (1) Arthritis of right knee Is this a current diagnosis for this admission?: Yes Plan: Patient is now reconsidering her request for rehab placement as long as she can stay in the hospital throughout the weekend. The patient is quite specific about what her analgesic needs are including continued parenteral morphine - Time Time Spent with patient: 15-24 minutes Anticipated discharge: Other Within: Other
[2017-08-17] MEDS: SENNOSIDES/DOCUSATE 8.6-50 MG 1 EACH TABLET PO SCH ×2 (09:33→17:06)
[2017-08-17] MEDS: PREGABALIN 100 MG CAPSULE PO SCH ×3 (11:08→17:04)
[2017-08-17] MEDS: INSULIN NPH (ISOPHANE), HUMAN 100 UNIT/ML 3 ML SUBCUT SCH ×2 (11:08→21:06)
[2017-08-17] MEDS: PRENATAL VITAMIN W DHA CAPSULE PO SCH (11:09)
[2017-08-17] MEDS: INSULIN LISPRO 100 UNIT/ML 3 ML VIAL SUBCUT PRN ×2 (14:26→21:06)
[2017-08-17] MEDS: ASPIRIN 81 MG TABLET, ENT COATED PO SCH (17:04)
[2017-08-17] MEDS: ZOLPIDEM TARTRATE 5 MG TABLET PO PRN (21:06)
[2017-08-18] MEDS: OXYCODONE HCL IR 5 MG TABLET PO PRN ×5 (02:54→21:42)
[2017-08-18] MEDS: LANSOPRAZOLE 30 MG TAB.RAP.DR PO SCH (05:13)
[2017-08-18] MEDS: MORPHINE SULFATE 10 MG/ML INJ IM PRN ×4 (05:40→19:59)
[2017-08-18] MEDS: PREGABALIN 100 MG CAPSULE PO SCH ×3 (09:59→18:06)
[2017-08-18] MEDS: PRENATAL VITAMIN W DHA CAPSULE PO SCH (09:59)
[2017-08-18] MEDS: INSULIN NPH (ISOPHANE), HUMAN 100 UNIT/ML 3 ML SUBCUT SCH ×2 (09:59→21:43)
[2017-08-18] MEDS: INSULIN LISPRO 100 UNIT/ML 3 ML VIAL SUBCUT PRN ×4 (09:59→21:43)
[2017-08-18] MEDS: SENNOSIDES/DOCUSATE 8.6-50 MG 1 EACH TABLET PO SCH ×2 (10:00→18:08)
[2017-08-18] MEDS: MORPHINE SULFATE 10 MG/ML INJ IV PRN (16:23)
[2017-08-18] MEDS: ASPIRIN 81 MG TABLET, ENT COATED PO SCH (18:06)
[2017-08-18] MEDS: ZOLPIDEM TARTRATE 5 MG TABLET PO PRN (21:41)
[2017-08-19] MEDS: MORPHINE SULFATE 10 MG/ML INJ IV PRN (00:08)
[2017-08-19] MEDS: OXYCODONE HCL IR 5 MG TABLET PO PRN ×6 (02:21→22:30)
[2017-08-19] MEDS: MORPHINE SULFATE 10 MG/ML INJ IM PRN (04:37)
[2017-08-19] MEDS: LANSOPRAZOLE 30 MG TAB.RAP.DR PO SCH (05:26)
--- NOTE | 2017-08-19 07:00 | PDOC PROGRESS REPORT ---
Subjective Progress Note for:: 08/19/17 Reason For Visit: M17.11 UNILATERAL PRIMARY OSTEOARTHRITIS, RIGHT KN 61-year-old white female status post right knee arthroplasty with a delayed discharge because of shelter facility placement problems Physical Exam Vital Signs: Temp Pulse Resp BP Pulse Ox 37.2 C 106 H 17 121/70 95 08/19/17 00:05 08/19/17 00:05 08/19/17 00:05 08/19/17 00:05 08/19/17 00:05 Intake & Output 08/17/17 08/18/17 08/19/17 06:59 06:59 06:59 Intake Total 913 1370 1280 Balance 913 1370 1280 Weight 118 kg 118.5 kg 118.1 kg Physical Exam: Patient is an overweight if not obese middle-aged white female ambulating independently with a walker this morning. General appearance: PRESENT: no acute distress Head exam: PRESENT: normocephalic Respiratory exam: PRESENT: unlabored Cardiovascular exam: PRESENT: RRR Pulses: PRESENT: +1 pedal pulses bilateral Vascular exam: PRESENT: normal capillary refill GI/Abdominal exam: PRESENT: soft Rectal exam: PRESENT: deferred Extremities exam: PRESENT: other - Right knee dressing clean dry and intact. Some swelling and ecchymosis over the dorsum of the foot. Neurological exam: PRESENT: alert, awake, oriented to person, oriented to place , oriented to time, oriented to situation, CN II-XII grossly intact. ABSENT: motor sensory deficit Psychiatric exam: PRESENT: appropriate affect, normal mood. ABSENT: homicidal ideation, suicidal ideation Skin exam: PRESENT: dry, intact, warm. ABSENT: cyanosis, rash Results Laboratory Results: 08/16/17 04:35 08/14/17 06:16 Impressions: Knee X-Ray 08/13/17 11:14 IMPRESSION: SATISFACTORY POSTOPERATIVE RIGHT KNEE. Status: Imported from PACS Assessment & Plan - Diagnosis (1) Arthritis of right knee Is this a current diagnosis for this admission?: Yes Plan: 61-year-old white female status post right knee arthroplasty with with an objectively acceptable result but with ongoing issues with pain control. Patient continues to require parenteral morphine. This will be stopped in a pain management consult has been requested. - Time Time Spent with patient: 15-24 minutes Anticipated discharge: Home with Homehealth, SNF Within: Other
[2017-08-19] MEDS: INSULIN LISPRO 100 UNIT/ML 3 ML VIAL SUBCUT PRN ×4 (08:11→22:30)
[2017-08-19] MEDS: SENNOSIDES/DOCUSATE 8.6-50 MG 1 EACH TABLET PO SCH ×2 (09:29→17:40)
[2017-08-19] MEDS: INSULIN NPH (ISOPHANE), HUMAN 100 UNIT/ML 3 ML SUBCUT SCH ×2 (09:29→22:30)
[2017-08-19] MEDS: PREGABALIN 100 MG CAPSULE PO SCH ×3 (09:29→17:40)
[2017-08-19] MEDS: PRENATAL VITAMIN W DHA CAPSULE PO SCH (09:29)
[2017-08-19] MEDS: ZOLPIDEM TARTRATE 5 MG TABLET PO PRN (15:04)
[2017-08-19] MEDS: ASPIRIN 81 MG TABLET, ENT COATED PO SCH (17:40)
[2017-08-19] MEDS ORDERED: OXYCODONE HCL SR 10 MG TABLET PO ONE (19:45)
[2017-08-20] MEDS: OXYCODONE HCL IR 5 MG TABLET PO PRN ×4 (01:57→12:25)
[2017-08-20] MEDS: LANSOPRAZOLE 30 MG TAB.RAP.DR PO SCH (05:11)
--- NOTE | 2017-08-20 06:29 | PDOC PROGRESS REPORT ---
Subjective Progress Note for:: 08/20/17 Reason For Visit: M17.11 UNILATERAL PRIMARY OSTEOARTHRITIS, RIGHT KN 61-year-old white female status post right knee arthroplasty Physical Exam Vital Signs: Temp Pulse Resp BP Pulse Ox 36.9 C 102 H 15 135/65 H 94 08/19/17 19:57 08/19/17 19:57 08/19/17 19:57 08/19/17 19:57 08/19/17 19:57 Intake & Output 08/18/17 08/19/17 08/20/17 06:59 06:59 06:59 Intake Total 1370 1280 1203 Balance 1370 1280 1203 Weight 118.5 kg 118.1 kg 118.3 kg Results Laboratory Results: 08/16/17 04:35 08/14/17 06:16 Impressions: Knee X-Ray 08/13/17 11:14 IMPRESSION: SATISFACTORY POSTOPERATIVE RIGHT KNEE. Assessment & Plan - Diagnosis (1) Arthritis of right knee Is this a current diagnosis for this admission?: Yes Plan: Pain control continues to be a problem. Pain management consult has been placed in her medication has been rearranged. Tentative plan for discharge either to home or fdc facility tomorrow. - Time Time Spent with patient: 15-24 minutes Anticipated discharge: Other Within: Other
[2017-08-20] MEDS: INSULIN NPH (ISOPHANE), HUMAN 100 UNIT/ML 3 ML SUBCUT SCH (09:09)
[2017-08-20] MEDS: PREGABALIN 100 MG CAPSULE PO SCH (09:09)
[2017-08-20] MEDS: PRENATAL VITAMIN W DHA CAPSULE PO SCH (09:09)
[2017-08-20] MEDS: SENNOSIDES/DOCUSATE 8.6-50 MG 1 EACH TABLET PO SCH (09:10)
[2017-08-20] MEDS ORDERED: OXYCODONE HCL SR 10 MG TABLET PO SCH (10:00)
[2017-08-20 14:39] VITALS: BP 121/52
--- NOTE | 2017-08-20 14:45 | CONSULTATION REPORT E ---
Consultation Report NAME: AUSTYN RODRIGUEZ : 1955 AGE: 61Y DATE: 08/20/2017 ROOM: 430 A TO: DONITA SIMON PA-C FROM: Requesting Physician- Dr. Lanza CHIEF COMPLAINT: Right knee pain status post total knee replacement. HISTORY OF PRESENT ILLNESS: The patient underwent a right total knee replacement on 08/13. She had a normal postop course. She has been participating with physical therapy and is awaiting discharge to a skilled rehab facility. The IV morphine was discontinued early this morning and the patient has had somedifficulty with that , complaining of increased pain. She is currently receiving oxycodone 10 mg every 4 hours as needed. This is helpful, but it does not last very long. She typically takes oxycodone 10 mg five times a day at home, so this is only 10 mg more than her typical dosage and of course, she has increased pain since her surgery. She says her pain gets up to a 5/5 when she is doing physical therapy and is usually about a 3/5 when she is just lying in bed and resting. Again, her oxycodone helps, but it does not last long. She denies any side effects. PAST MEDICAL HISTORY: Positive for: 1. Cataracts. 2. Glaucoma. 3. COPD. 4. Hypertension. 5. Fatty liver. 6. Arthritis. 7. Anxiety. 8. Diabetes. PAST SURGICAL HISTORY: Prior surgeries include: Hysterectomy. ALLERGIES: EXENATIDE. MEDICATIONS: As per chart. She is currently receiving oxycodone 10 mg every 4 hours as needed. Her IV morphine was discontinued this morning. SOCIAL HISTORY: She quit smoking in 03/2014. She denies using alcoholic beverages or illicit drugs. She is employed and works as a [employer]. She has 1 child. She is . She does not drink any caffeine. REVIEW OF SYSTEMS: CONSTITUTIONAL: She denies any fevers, chills, dizziness, weakness, loss of appetite. SKIN: Denies any itching or diaphoresis. HEENT: Denies visual changes or difficulty hearing. CARDIOVASCULAR: Denies chest pain, edema, heart palpitations. RESPIRATORY: Denies cough, sputum production. GASTROINTESTINAL: Denies nausea, abdominal pain or constipation. GENITOURINARY: Denies dysuria or hematuria. MUSCULOSKELETAL: Positive for knee pain. NEUROLOGIC: Denies any focal weakness, bowel or bladder incontinence, saddle anesthesia, seizures, loss of consciousness. ENDOCRINE: Denies any recent weight changes. Review of systems otherwise negative. PHYSICAL EXAMINATION: GENERAL: The patient is an alert and oriented, obese female who is lying comfortably in bed when I entered the room. She was actually sleeping and I had to wake her up to talk with her and examine her. VITAL SIGNS: Stable. SKIN: Warm and dry. HEENT: Normocephalic, atraumatic. Extraocular muscles are intact. Pupils are equal and reactive to light. NECK: Supple. Nontender. CARDIOVASCULAR SYSTEM: Radial pulses 2+ bilaterally. LUNGS: Respirations are nonlabored. ABDOMEN: Soft and nontender. EXTREMITIES: Warm, moves them easily. Her right knee does have a surgical bandage on it. No drainage is noted. Diffusely tender to palpation. NEUROLOGIC: Cranial nerves 2-12 are grossly intact. Upper and lower extremity strength and sensation is preserved. The patient is alert and oriented to person, place, and time. IMPRESSION AND PLAN: She has right knee pain status post a total knee replacement on 08/13. She has had a normal postop course, able to participate in physical therapy. She is awaiting discharge to a [facility] facility. She had some difficulty when they discontinued her IV morphine. She is on a current medication regimen of oxycodone 10 mg every 4 hours. It is helpful, but it does not last long. She does take oxycodone on a daily basis at home and usually takes oxycodone 10 mg five times a day, so her normal daily dose is 50 mg a day, and it is pretty typical for a patient on chronic opioids to need about a 50% increase in dose for postop pain, as they are more tolerant to the medications, so I do recommend adding in OxyContin 10 mg every 12 hours for improved baseline pain control and will hopefulyl last throughout the day and the night so she will need less instant release medication. She can continue the oxycodone instant release 10 mg every 4 hours as needed, but hopefully she will not need as much once we add in the OxyContin. She can be discharged home with this medication and hopefully, she will only need it for just a week or 2 and then she can taper off of it. She is a current patient at [facility], so we recommend she follow up upon discharge, so that we can make further adjustments to her medications, but hopefully she will continue to improve with time. Thank you for the consult. DICTATING PHYSICIAN: DONITA SIMON PA-C [id number] PHY#: [id number] ID: [id number] JOB#: [id number] ACCT: [id number] cc:DONITA SIMON PA-C > [facility]
== END 2017-08-20 12:55 | DRG 470 ==
LOC: INOR 07:46 → 4S 13:06
PROVIDERS: ADMIT Orthopaedic Surgery; ATTEND Orthopaedic Surgery
PROC: 0SRC0J9 Replacement of Right Knee Joint with Synthetic Substitute, Cemented, Open Approach (ICD-10-PCS; principal; 2017-08-13 10:30)
DX: M17.11 Unilateral primary osteoarthritis, right knee (principal); Z68.42 Body mass index [BMI] 45.0-49.9, adult; G89.18 Other acute postprocedural pain; F41.9 Anxiety disorder, unspecified; J44.9 Chronic obstructive pulmonary disease, unspecified; I10 Essential (primary) hypertension; E11.9 Type 2 diabetes mellitus without complications; H40.9 Unspecified glaucoma; H26.9 Unspecified cataract; E66.9 Obesity, unspecified; Z79.891 Long term (current) use of opiate analgesic; Z75.1 Person awaiting admission to adequate facility elsewhere; Z90.710 Acquired absence of both cervix and uterus
CPT/HCPCS: 01402; 36415; 80048; 82962; 85027; 88305; 88311; 94640; 94799; C9290; J0131; J0690; J1100; J1741; J1815; J2060; J2250; J2270; J2405; J2704; J2765; J3010; J3370; J3490; J7050; J7060

== ENCOUNTER 2017-09-10 02:06 | Emergency (ER) | payer OTHER, MEDICAID ==
[2017-09-10] MEDS ORDERED: CEPHALEXIN 500 MG CAPSULE PO ONE (03:42)
[2017-09-10 04:09] LABS: ABSOLUTE LYMPHOCYTES (AUTO) 0.7 10^3/uL (0.5-4.7); ABSOLUTE MONOCYTES (AUTO) 0.3 10^3/uL (0.1-1.4); ABSOLUTE NEUT (AUTO) 1.7 10^3/uL (1.7-8.2); BASOPHILS % (AUTO) 0.8 % (0-2); HEMATOCRIT 31.2 % (36.0-47.0); HEMOGLOBIN 9.9 g/dL (12.0-15.5); MEAN CORPUSCULAR HEMOGLOBIN 28.2 pg (27.0-33.4); MEAN CORPUSCULAR HGB CONC 31.9 g/dL (32.0-36.0); MEAN CORPUSCULAR VOLUME 89 fl (80-97); MONOCYTES % (AUTO) 9.4 % (3-13); PLATELET COUNT 106 10^3/uL (150-450); RED BLOOD COUNT 3.52 10^6/uL (3.72-5.28); SEGMENTED NEUTROPHILS % (AUTO) 63.8 % (42-78); TOTAL CELLS COUNTED % (AUTO) 100 %; WHITE BLOOD COUNT 2.7 10^3/uL (4.0-10.5)
--- NOTE | 2017-09-10 04:22 | ER Document Report ---
ED Extremity Problem, Lower - General Chief Complaint: Post Surgical Pain Stated Complaint: RT KNEE PAIN Time Seen by Provider: 09/10/17 03:20 Notes: The patient is a 61-year-old female, 3 weeks status post total right knee replacement by Dr. Mcfarland, presents with small amount of redness and serous discharge from her surgical wound. She took her temperature at home and it was 99.4. She had the bob removed earlier in the week by Dr. Mcfarland's PA. Patient denies numbness, tingling, enlarged right knee or any other rash. TRAVEL OUTSIDE OF THE [place] IN LAST 30 DAYS: No - Related Data Allergies/Adverse Reactions: exenatide [From Byetta] Allergy (Verified 07/30/17 12:14) Past Medical History - General Information source: Patient - Social History Smoking Status: Unknown if Ever Smoked Family History: Reviewed & Not Pertinent - Past Medical History Cardiac Medical History: Reports: Hx Hypercholesterolemia, Hx Hypertension Denies: Hx Atrial Fibrillation, Hx Congestive Heart Failure, Hx Coronary Artery Disease, Hx Heart Attack, Hx Peripheral Vascular Disease, Hx Pulmonary Embolism, Hx Heart Murmur Pulmonary Medical History: Reports: Hx Bronchitis, Hx COPD Denies: Hx Asthma, Hx Pneumonia, Hx Respiratory Failure, Hx Sleep Apnea, Hx Tuberculosis Neurological Medical History: Denies: Hx Cerebrovascular Accident, Hx Seizures Endocrine Medical History: Reports: Hx Diabetes Mellitus Type 2. Denies: Hx Graves' Disease, Hx Hyperthyroidism, Hx Hypothyroidism Renal/ Medical History: Denies: Hx Kidney Stones, Hx Peritoneal Dialysis Malignancy Medical History: Denies: Hx Lung Cancer GI Medical History: Reports: Hx Gastroesophageal Reflux Disease. Denies: Hx Crohn's Disease, Hx Hiatal Hernia, Hx Irritable Bowel, Hx Liver Failure, Hx Pancreatitis, Hx Ulcer Musculoskeltal Medical History: Reports Hx Arthritis - knees, Denies Hx Fibromyalgia, Denies Hx Muscular Dystrophy Traumatic Medical History: Denies: Hx Fractures Past Surgical History: Reports: Hx Hysterectomy, Hx Orthopedic Surgery - R Hand. Denies: Hx Appendectomy, Hx Bowel Surgery, Hx Section, Hx Cholecystectomy, Hx Colostomy, Hx Coronary Artery Bypass Graft, Hx Gastric Bypass Surgery, Hx Herniorrhaphy, Hx Mastectomy, Hx Pacemaker, Hx Tonsillectomy , Hx Tubal Ligation - Immunizations Immunizations up to date: Yes Hx Diphtheria, Pertussis, Tetanus Vaccination: Yes Hx Pneumococcal Vaccination: 12/24/14 Review of Systems - Review of Systems Notes: REVIEW OF SYSTEMS: CONSTITUTIONAL: -fevers, -chills EENT: -eye pain, -difficulty swallowing, -nasal congestion CARDIOVASCULAR: -chest pain, -syncope. RESPIRATORY: -cough, -SOB GASTROINTESTINAL: -abdominal pain, -nausea, -vomiting, -diarrhea GENITOURINARY: -dysuria, -hematuria MUSCULOSKELETAL: +right knee pain, -back pain, -neck pain HEMATOLOGIC: -easy bruising or bleeding. LYMPHATIC: -swollen, enlarged glands. NEUROLOGICAL: -altered mental status or loss of consciousness, -headache, - neurologic symptoms PSYCHIATRIC: -anxiety, -depression. ALL OTHER SYSTEMS REVIEWED AND NEGATIVE. Physical Exam - Vital signs Vitals: Temp Pulse Resp BP Pulse Ox 99.1 F 99 16 132/77 H 95 09/10/17 02:27 09/10/17 02:27 09/10/17 02:27 09/10/17 02:09/10/17 02:27 - Notes Notes: PHYSICAL EXAMINATION: GENERAL: Well-appearing, well-nourished and in no acute distress. HEAD: Atraumatic, normocephalic. EYES: Pupils equal round and reactive to light, extraocular movements intact, sclera anicteric, conjunctiva are normal. ENT: nares patent, oropharynx clear without exudates. Moist mucous membranes. NECK: Normal range of motion, supple without lymphadenopathy LUNGS: Breath sounds clear to auscultation bilaterally and equal. No wheezes rales or rhonchi. HEART: Regular rate and rhythm without murmurs ABDOMEN: Soft, nontender, normoactive bowel sounds. No guarding, no rebound. No masses appreciated. EXTREMITIES: Well-healing anterior right knee surgical wound with a small amount of serous drainage from a pinpoint opening, small amount of erythema around the open wound. No pitting or edema. No cyanosis. NEUROLOGICAL: Cranial nerves grossly intact. Normal speech, normal gait. Normal sensory and motor exams. PSYCH: Normal mood, normal affect. Course - Re-evaluation Re-evalutation: Patient is afebrile with a small amount of serous drainage from a small opening of her surgical wound. There is mild erythema around this opening. This does not appear to be a septic joint. She has a known leukopenia and thrombocytopenia that she follows with Hematology. With the small amount of erythema, will begin her on Keflex and Bactrim and have her follow-up with her orthopedic surgeon. Given very strict return precautions and she understands. - Vital Signs Vital signs: Temp Pulse Resp BP Pulse Ox 98.4 F 88 18 130/69 H 100 09/10/17 05:29 09/10/17 05:29 09/10/17 05:29 09/10/17 05:29 09/10/17 05:29 - Laboratory Result Diagrams: 09/10/17 04:03 09/10/17 04:03 Laboratory results interpreted by me: 09/10/17 09/10/17 04:03 04:03 WBC 2.7 L RBC 3.52 L Hgb 9.9 L Hct 31.2 L MCHC 31.9 L RDW 16.0 H Plt Count 106 L BUN 5 L Creatinine 0.50 L Glucose 241 H AST 46 H Alkaline Phosphatase 153 H Albumin 3.3 L Discharge - Discharge Clinical Impression: Cellulitis Qualifiers: Site of cellulitis: extremity Site of cellulitis of extremity: lower extremity Laterality: right Qualified Code(s): L03.115 - Cellulitis of right lower limb Condition: Stable Disposition: HOME, SELF-CARE Additional Instructions: Take the full course of antibiotics and follow-up with your orthopedic surgeon. Return to the ER if you notice any worsening discharge, worsening redness or have fevers above 100.4. Prescriptions: Cephalexin Monohydrate [Keflex 500 mg Capsule] 500 mg PO TID 7 Days capsule Sulfamethoxazole/Trimethoprim [Bactrim Ds Tablet] 1 each PO Q12H #14 tablet Forms: Elevated Blood Pressure Referrals: DAMIEN ANNA MD [Primary Care Provider] - Follow up as needed
[2017-09-10] MEDS ORDERED: SULFAMETHOXAZOLE/TRIMETHOPRIM 800-160 MG TABLET PO ONE (04:27)
[2017-09-10 04:37] LABS: ALANINE AMINOTRANSFERASE 21 U/L (9-52); ALBUMIN 3.3 g/dL (3.5-5.0); ALKALINE PHOSPHATASE 153 U/L (38-126); ANION GAP 10 (5-19); ASPARTATE AMINO TRANSFERASE 46 U/L (14-36); BILIRUBIN,DIRECT 0.4 mg/dL (0.0-0.4); BILIRUBIN,TOTAL 0.5 mg/dL (0.2-1.3); BLOOD UREA NITROGEN 5 mg/dL (7-20); CALCIUM 8.4 mg/dL (8.4-10.2); CARBON DIOXIDE 30 mmol/L (22-30); CHLORIDE 103 mmol/L (98-107); GLUCOSE 241 mg/dL (75-110); POTASSIUM 4.2 mmol/L (3.6-5.0); SODIUM 142.6 mmol/L (137-145); TOTAL PROTEIN 7.2 g/dL (6.3-8.2)
[2017-09-10 05:33] VITALS: BP 130/69
== END 2017-09-10 05:29 | disposition home or self-care (01) ==
LOC: ER 02:06
DX: L03.115 Cellulitis of right lower limb (principal); M25.561 Pain in right knee; D72.819 Decreased white blood cell count, unspecified; D69.6 Thrombocytopenia, unspecified; I10 Essential (primary) hypertension; J44.9 Chronic obstructive pulmonary disease, unspecified; E11.9 Type 2 diabetes mellitus without complications; Z96.651 Presence of right artificial knee joint; Z88.8 Allergy status to other drugs, medicaments and biological substances
CPT/HCPCS: 36415; 80053; 85025; 87040; 99283

== ENCOUNTER → 2017-12-26 | Outpatient (CLI) | payer OTHER, MEDICAID ==
[2017-12-26 12:46] LABS: ABSOLUTE LYMPHOCYTES (AUTO) 0.5 10^3/uL (0.5-4.7); ABSOLUTE MONOCYTES (AUTO) 0.2 10^3/uL (0.1-1.4); ABSOLUTE NEUT (AUTO) 1.4 10^3/uL (1.7-8.2); BASOPHILS % (AUTO) 0.5 % (0-2); EOSINOPHILS % (AUTO) 0.8 % (0-6); HEMATOCRIT 35.5 % (36.0-47.0); HEMOGLOBIN 11.4 g/dL (12.0-15.5); LYMPHOCYTES % (AUTO) 23.9 % (13-45); MEAN CORPUSCULAR HEMOGLOBIN 27.3 pg (27.0-33.4); MEAN CORPUSCULAR HGB CONC 32.2 g/dL (32.0-36.0); MEAN CORPUSCULAR VOLUME 85 fl (80-97); MONOCYTES % (AUTO) 9.9 % (3-13); RED BLOOD COUNT 4.18 10^6/uL (3.72-5.28); RED CELL DISTRIBUTION WIDTH 17.9 % (11.5-14.0); SEGMENTED NEUTROPHILS % (AUTO) 64.9 % (42-78); TOTAL CELLS COUNTED % (AUTO) 100 %; WHITE BLOOD COUNT 2.1 10^3/uL (4.0-10.5)
[2017-12-26 12:47] LABS: APPEARANCE,URINE CLEAR; BILIRUBIN,URINE NEGATIVE (NEGATIVE); COLOR,URINE STRAW; GLUCOSE, URINE >=500 mg/dL (NEGATIVE); KETONES,URINE NEGATIVE (NEGATIVE); LEUKOCYTE ESTERASE,URINE NEGATIVE (NEGATIVE); NITRITE,URINE NEGATIVE (NEGATIVE); PROTEIN,URINE NEGATIVE (NEGATIVE); URINE SPECIFIC GRAVITY 1.029; UROBILINOGEN,URINE NEGATIVE mg/dL (<2.0)
[2017-12-26 12:55] LABS: ANION GAP 10 (5-19); BLOOD UREA NITROGEN 6 mg/dL (7-20); CALCIUM 8.2 mg/dL (8.4-10.2); CARBON DIOXIDE 28 mmol/L (22-30); CHLORIDE 100 mmol/L (98-107); POTASSIUM 4.4 mmol/L (3.6-5.0); SODIUM 137.6 mmol/L (137-145)
[2017-12-26 13:09] LABS: GLUCOSE 439 mg/dL (75-110)
[2017-12-26 13:13] LABS: PLATELET COUNT 85 10^3/uL (150-450)
[2017-12-26 13:14] LABS: ANISOCYTOSIS 2+; HYPOCHROMASIA 1+; OVALOCYTES SLIGHT; PLATELET COMMENT DECREASED; POIKILOCYTOSIS SLIGHT; POLYCHROMASIA SLIGHT; ROULEAUX SLIGHT
--- NOTE | 2017-12-26 13:21 | RADIOLOGY REPORT (SQ) ---
EXAM DESCRIPTION: CHEST PA/LATERAL COMPLETED DATE/TIME: 12/26/2017 12:39 pm REASON FOR STUDY: PRE-OP COMPARISON: 11/23/2015 EXAM PARAMETERS: NUMBER OF VIEWS: two views TECHNIQUE: Digital Frontal and Lateral radiographic views of the chest acquired. RADIATION DOSE: NA LIMITATIONS: none FINDINGS: LUNGS AND PLEURA: Chronic interstitial changes. No evidence of pulmonary edema or pneumon ia. MEDIASTINUM AND HILAR STRUCTURES: No masses or contour abnormalities. HEART AND VASCULAR STRUCTURES: Stable heart size. No evidence for failure. BONES: No acute findings. HARDWARE: None in the chest. OTHER: No other significant finding. IMPRESSION: No acute findings in the chest. TECHNICAL DOCUMENTATION: JOB ID: [id number] [employer]- All Rights Reserved Reading location - IP/workstation name: [email or web address]
--- NOTE | 2017-12-27 08:59 | EKG REPORT ---
SEVERITY:- BORDERLINE ECG - SINUS RHYTHM LVH BY VOLTAGE CONSIDER ANTERIOR INFARCT : Confirmed by: Isra Peterson 27-Dec-2017 08:58:46
== END ==
LOC: OD 11:49
PROVIDERS: ATTEND Orthopaedic Surgery
DX: Z01.810 Encounter for preprocedural cardiovascular examination (principal); Z01.812 Encounter for preprocedural laboratory examination; Z01.818 Encounter for other preprocedural examination; E11.9 Type 2 diabetes mellitus without complications
CPT/HCPCS: 36415; 71046; 80048; 81001; 83036; 85025; 93005; 93010

== ENCOUNTER → 2018-01-10 | Outpatient (CLI) | payer OTHER, MEDICAID ==
--- NOTE | 2018-01-10 08:57 | WOMENS IMAGING REPORT ---
EXAM DESCRIPTION: BILAT DIAGNOSTIC MAMMO W/CAD COMPLETED DATE/TIME: 01/10/2018 8:46 am REASON FOR STUDY: N63.10 N63.10 UNSPECIFIED LUMP IN THE RIGHT BREAST, UNSPECIFIED RISHABH COMPARISON: None. TECHNIQUE: Standard craniocaudal and mediolateral oblique views of each breast recorded using digita l acquisition. True lateral view right breast. LIMITATIONS: None. FINDINGS: RIGHT BREAST MASSES: No suspicious masses. CALCIFICATIONS: No new or suspicious calcifications. ARCHITECTURAL DISTORTION: None. DEVELOPING DENSITY: None. ASYMMETRY: None noted. OTHER: No other significant findings. LEFT BREAST MASSES: No suspicious masses. CALCIFICATIONS: No new or suspicious calcifications. ARCHITECTURAL DISTORTION: None. DEVELOPING DENSITY: None. ASYMMETRY: None noted. OTHER: No other significant finding. Read with the assistance of CAD: .[facility] - R2 Cenova Version 1.3 .[facility] - R2 Cenova Version 1.3 .[facility] - R2 Cenova Version 2.4 .[facility] - R2 Cenova Version 2.4 .[facility] - R2 [employer] Medical Version 9.2 IMPRESSION: No evidence of malignancy. BREAST DENSITY: a. The breasts are almost entirely fatty. BIRAD: 1 Negative. RECOMMENDATION: RECOMMENDED FOLLOW UP: Birads 1 or 2: The patient should resume routine screening . SPECIFIC INTERVENTION/IMAGING/CONSULTATION RECOMMENDED:No additional intervention/ imaging/consultati on needed at this time. COMMUNICATION:The imaging findings were not discussed with the patient. Her referring provider has be en notified of the findings. COMMENT: The patient has been notified of the results by letter per SA requirements. Additional no tification policies are in place for contacting patient with suspicious or incomplete findings. Quality ID #[id number]: The [employer] recommends an annual screening mammogram for women aged 40 years or over. This facility utilizes a reminder system to ensure that all patients receive reminder letters, and/or direct phone calls for appointments. This includes reminders for routine scr eening mammograms, diagnostic mammograms, or other Breast Imaging Interventions when appropriate. Th is patient will be placed in the appropriate reminder system. The [employer] (A[employer]) has developed recommendations for screening MRI of the breast s in certain patient populations, to be used in conjunction with mammography. Breast MRI surveillanc e may be appropriate for women with more than 20% lifetime risk of developing breast cancer as deter mined by genetic testing, significant family history of the disease, or history of mantle radiation f or Hodgkins Disease. ACR Practice Guidelines 2008. TECHNICAL DOCUMENTATION: FINDING NUMBER: (1) ASSESSMENT: (1) JOB ID: [id number] [employer]- All Rights Reserved Reading location - IP/workstation name: [email or web address]
== END ==
LOC: WI 08:29
PROVIDERS: ATTEND Family Medicine
DX: N63.10 Unspecified lump in the right breast, unspecified quadrant (principal)
CPT/HCPCS: 77066

== ENCOUNTER → 2018-01-10 | Outpatient (CLI) | payer OTHER, MEDICAID ==
[2018-01-10 11:06] LABS: ABSOLUTE LYMPHOCYTES (AUTO) 1.1 10^3/uL (0.5-4.7); ABSOLUTE MONOCYTES (AUTO) 0.3 10^3/uL (0.1-1.4); ABSOLUTE NEUT (AUTO) 2.7 10^3/uL (1.7-8.2); BASOPHILS % (AUTO) 0.9 % (0-2); EOSINOPHILS % (AUTO) 0.9 % (0-6); HEMATOCRIT 37.1 % (36.0-47.0); HEMOGLOBIN 12.2 g/dL (12.0-15.5); LYMPHOCYTES % (AUTO) 26.7 % (13-45); MEAN CORPUSCULAR HEMOGLOBIN 27.6 pg (27.0-33.4); MEAN CORPUSCULAR HGB CONC 32.8 g/dL (32.0-36.0); MEAN CORPUSCULAR VOLUME 84 fl (80-97); MONOCYTES % (AUTO) 7.8 % (3-13); PLATELET COUNT 107 10^3/uL (150-450); RED BLOOD COUNT 4.41 10^6/uL (3.72-5.28); RED CELL DISTRIBUTION WIDTH 17.7 % (11.5-14.0); SEGMENTED NEUTROPHILS % (AUTO) 63.7 % (42-78); TOTAL CELLS COUNTED % (AUTO) 100 %; WHITE BLOOD COUNT 4.2 10^3/uL (4.0-10.5)
[2018-01-10 11:18] LABS: ANION GAP 13 (5-19); BLOOD UREA NITROGEN 9 mg/dL (7-20); CALCIUM 9.4 mg/dL (8.4-10.2); CARBON DIOXIDE 26 mmol/L (22-30); CHLORIDE 100 mmol/L (98-107); GLUCOSE 116 mg/dL (75-110)
== END ==
LOC: OD 10:03
PROVIDERS: ATTEND Nurse Practitioner Acute Care
DX: Z01.818 Encounter for other preprocedural examination (principal); E66.3 Overweight; E13.42 Other specified diabetes mellitus with diabetic polyneuropathy; I10 Essential (primary) hypertension; M45.9 Ankylosing spondylitis of unspecified sites in spine
CPT/HCPCS: 36415; 80048; 83036; 85025

== ENCOUNTER 2018-01-14 10:00 | Inpatient (IN) | payer OTHER, MEDICAID ==
[2018-01-21] MEDS ORDERED: CEFAZOLIN INJ 1 GM VIAL IV PRN (05:00)
[2018-01-21] MEDS ORDERED: VANCOMYCIN HCL 1,000 MG in DEXTROSE 5%-WATER 250 ML IV PRN (05:00)
[2018-01-21] MEDS ORDERED: LACTATED RINGERS 1000 ML IV PRN (05:00)
[2018-01-21] MEDS ORDERED: LIDOCAINE 0.5% INJ-PF (5 MG/ML) 50 ML SDV SUBCUT PRN (05:00)
[2018-01-21] MEDS ORDERED: IBUPROFEN 800 MG in NORMAL SALINE 250 ML IV PRN (05:00)
[2018-01-21] MEDS ORDERED: LANSOPRAZOLE 15 MG TAB.RAP.DR PO PRN (05:00)
[2018-01-21] MEDS ORDERED: OXYCODONE HCL SR 10 MG TABLET PO PRN (05:00)
[2018-01-21] MEDS ORDERED: BUPIVACAINE INJ/PF LIPOSOME/PF 266 MG/20 ML SDV INJ PRN (05:00)
[2018-01-21] MEDS ORDERED: THROMBIN (BOVINE) TOPICAL 20000 UNIT VIAL ONE ×2 (07:27→07:46)
[2018-01-21] MEDS ORDERED: BUPIVACAINE HCL 0.25% /EPINEPHRINE INJ/PF 30 ML SDV ONE (07:27)
[2018-01-21] MEDS ORDERED: THROMBIN (BOVINE) TOPICAL 5000 UNIT VIAL ONE (07:47)
[2018-01-21] MEDS ORDERED: OXYCODONE HCL SR 10 MG TABLET PO ONE (08:27)
[2018-01-21] MEDS ORDERED: LANSOPRAZOLE 15 MG TAB.RAP.DR ONE (08:27)
[2018-01-21] MEDS ORDERED: CEFAZOLIN INJ 1 GM VIAL ONE (08:27)
[2018-01-21] MEDS ORDERED: SUCCINYLCHOLINE CHLORIDE INJ 200 MG/10 ML VIAL ONE (09:52)
[2018-01-21] MEDS ORDERED: LIDOCAINE 2% INJ-PF (20 MG/ML) 10 ML AMPUL ONE (10:30)
[2018-01-21] MEDS ORDERED: MIDAZOLAM 2 MG/2 ML INJ ONE (10:30)
[2018-01-21] MEDS ORDERED: DEXAMETHASONE SOD PHOSPHATE INJ 4 MG/1 ML VIAL ONE (10:30)
[2018-01-21] MEDS ORDERED: FENTANYL CITRATE INJ/PF 100 MCG/2 ML AMPUL ONE (10:30)
[2018-01-21] MEDS ORDERED: ONDANSETRON HCL INJ/PF 4 MG/2 ML SDV ONE (10:30)
[2018-01-21] MEDS ORDERED: TRANEXAMIC ACID INJ/PF 1,000 MG/10 ML SDV IV ONE ×3 (10:31→14:30)
[2018-01-21] MEDS ORDERED: ACETAMINOPHEN 1,000 MG/100 ML RTUPB IV ONE (10:31)
[2018-01-21] MEDS ORDERED: PROPOFOL INJ 200 MG/20 ML VIAL IV ONE (10:31)
[2018-01-21] MEDS ORDERED: BUPIVACAINE HCL/DEX-WATER/PF 15 MG/2 ML AMPULE ONE (10:32)
--- NOTE | 2018-01-21 11:28 | EKG REPORT ---
SEVERITY:- NORMAL ECG - SINUS RHYTHM : Confirmed by: Shaista Purdy MD 21-Jan-2018 11:27:38
[2018-01-21] MEDS ORDERED: FENTANYL CITRATE INJ/PF 100 MCG/2 ML AMPUL IV PRN ×3 (12:11)
[2018-01-21] MEDS ORDERED: MORPHINE SULFATE 10 MG/ML INJ IV PRN ×4 (12:11→12:33)
[2018-01-21] MEDS ORDERED: PROMETHAZINE HCL INJ 25 MG/1 ML VIAL IV PRN ×2 (12:11)
[2018-01-21] MEDS ORDERED: MEPERIDINE HCL/PF INJ 25 MG/1 ML DISP.SYRIN IV PRN (12:11)
[2018-01-21] MEDS ORDERED: DIPHENHYDRAMINE HCL 50 MG/ML VIAL IV PRN ×2 (12:11→12:33)
[2018-01-21] MEDS ORDERED: ONDANSETRON HCL INJ/PF 4 MG/2 ML SDV IV PRN ×2 (12:11→12:33)
--- NOTE | 2018-01-21 12:29 | Operative Report ---
Operative Report DATE OF SURGERY: 01/21/18 PREOPERATIVE DIAGNOSIS: Left knee arthritis OPERATION: Left knee arthroplasty SURGEON: ARLETTE BRADY ANESTHESIA: Spinal TISSUE REMOVED OR ALTERED: Bone to pathology ESTIMATED BLOOD LOSS: 100 PROCEDURE: Implants used: Femur: Lynne triathlon size 5 CR femur Tibia: 4 tibia Tibial liner: 9 mm CS insert Patella: 32 mm oval patella Procedure with the patient supine on the operating table the left the limb is prepped and draped in a sterile fashion. The limb was elevated for exsanguination and the tourniquet inflated to 280 torr. A standard midline median parapatellar approach the knee is taken. Access is gained to the femoral canal through the intercondylar notch. Intramedullary alignment instrumentation used to resect 10 mm of distal femur in 5 of valgus. Sizing guide indicated a size 5 femur. Appropriate cutting jig is then used to fashion anterior posterior and chamfer cuts. A trial reduction femurs performed and this is judged to be adequate. Attention was next turned to the tibia. Using an extra medullary alignment system 9 millimeters was resected off the lateral tibial plateau. This is sized to a size 4 tibia. A trial reduction was now performed with a 5 femur and a for tibia using a 9 millimeters spacer. It is full extension and central patellofemoral tracking. The articular surface the patella was next resected using an oscillating saw. All trial implants were removed. Polymethylmethacrylate is mixed and used to cement the above implants in place. On adequate curing the cement excess cement was removed the tourniquet was deflated hemostasis obtained the wound is then closed in layers using interrupted Vicryl followed by bob. A sterile compressive dressing was applied and the patient returned to recovery room in satisfactory condition.
[2018-01-21] MEDS ORDERED: MAG HYDROX/AL HYDROX/SIMETH SUSP 30 ML UDCUP PO PRN (12:33)
[2018-01-21] MEDS ORDERED: ONDANSETRON 4 MG TAB.RAPDIS PO PRN (12:33)
[2018-01-21] MEDS ORDERED: MORPHINE SULFATE 10 MG/ML INJ IM PRN (12:33)
[2018-01-21] MEDS ORDERED: ACETAMINOPHEN 325 MG TABLET PO PRN (12:33)
[2018-01-21] MEDS: FENTANYL CITRATE INJ/PF 100 MCG/2 ML AMPUL ONE ×2 (12:55→13:00)
[2018-01-21] MEDS: LORAZEPAM INJ 2 MG/1 ML VIAL ONE ×2 (13:00→13:15)
--- NOTE | 2018-01-21 13:40 | RADIOLOGY REPORT (SQ) ---
EXAM DESCRIPTION: KNEE LEFT 2 VIEWS COMPLETED DATE/TIME: 01/21/2018 1:29 pm REASON FOR STUDY: Post OP -Long Cassette in PACU M17.11 UNILATERAL PRIMARY OSTEOARTHRITIS, RIGHT KN EE COMPARISON: None. NUMBER OF VIEWS: Two views. TECHNIQUE: AP and lateral radiographic images acquired of the left knee. LIMITATIONS: None. FINDINGS: Postoperative images show a left total knee arthroplasty in good position. IMPRESSION: Left knee arthroplasty. Refer to operative note for further information. TECHNICAL DOCUMENTATION: JOB ID: [id number] [employer]- All Rights Reserved Reading location - IP/workstation name: [email or web address]
[2018-01-21] MEDS ORDERED: PREGABALIN 100 MG CAPSULE PO SCH (14:00)
[2018-01-21] MEDS ORDERED: DEXTROSE 40% GEL 15 GM TUBE PO PRN (15:17)
[2018-01-21] MEDS ORDERED: DEXTROSE 50%-WATER SYRINGE 12.5 GM/25 ML DOSE IV PRN (15:17)
[2018-01-21] MEDS ORDERED: GLUCAGON,HUMAN RECOMB 1 MG INJ IM PRN (15:17)
[2018-01-21] MEDS ORDERED: DEXTROSE 50%-WATER SYRINGE 25 GM/50 ML DOSE IV PRN (15:17)
[2018-01-21] MEDS ORDERED: DEXTROSE 40% GEL 15 GM TUBE X 2 PO PRN (15:17)
[2018-01-21] MEDS: IBUPROFEN 800 MG in NORMAL SALINE 250 ML IV SCH (18:39)
[2018-01-21] MEDS: SENNOSIDES/DOCUSATE 8.6-50 MG 1 EACH TABLET PO SCH (18:40)
[2018-01-21] MEDS: ZOLPIDEM TARTRATE 5 MG TABLET PO PRN (22:52)
[2018-01-21] MEDS: PREGABALIN 100 MG CAPSULE PO SCH (22:52)
[2018-01-21] MEDS: OXYCODONE HCL SR 10 MG TABLET PO SCH (22:53)
[2018-01-22] MEDS ORDERED: VANCOMYCIN HCL 1,000 MG in DEXTROSE 5%-WATER 250 ML IV ONE (00:33)
[2018-01-22] MEDS: MORPHINE SULFATE 10 MG/ML INJ INJ PRN ×2 (02:56→16:19)
[2018-01-22] MEDS: IBUPROFEN 800 MG in NORMAL SALINE 250 ML IV SCH ×3 (04:52→17:04)
[2018-01-22] MEDS: PREGABALIN 100 MG CAPSULE PO SCH ×3 (06:54→21:29)
[2018-01-22] MEDS: LANSOPRAZOLE 30 MG TAB.RAP.DR PO SCH (06:55)
[2018-01-22 07:05] LABS: HEMATOCRIT 32.3 % (36.0-47.0); HEMOGLOBIN 10.6 g/dL (12.0-15.5); MEAN CORPUSCULAR HEMOGLOBIN 27.2 pg (27.0-33.4); MEAN CORPUSCULAR HGB CONC 32.8 g/dL (32.0-36.0); MEAN CORPUSCULAR VOLUME 83 fl (80-97); RED BLOOD COUNT 3.89 10^6/uL (3.72-5.28); RED CELL DISTRIBUTION WIDTH 16.8 % (11.5-14.0); WHITE BLOOD COUNT 4.3 10^3/uL (4.0-10.5)
[2018-01-22 07:09] LABS: ANION GAP 13 (5-19); BLOOD UREA NITROGEN 6 mg/dL (7-20); CALCIUM 8.1 mg/dL (8.4-10.2); CARBON DIOXIDE 26 mmol/L (22-30); CHLORIDE 99 mmol/L (98-107); GLUCOSE 294 mg/dL (75-110); POTASSIUM 4.1 mmol/L (3.6-5.0); SODIUM 138.1 mmol/L (137-145)
[2018-01-22 07:25] LABS: PLATELET COUNT 76 10^3/uL (150-450)
--- NOTE | 2018-01-22 07:29 | PDOC PROGRESS REPORT ---
Subjective Progress Note for:: 01/22/18 Reason For Visit: LEFT KNEE ARTHRITIS 62-year-old white female status post left knee arthroplasty with a difficult night from pain control standpoint and behavioral standpoint. Physical Exam Vital Signs: Temp Pulse Resp BP Pulse Ox 36.7 C 93 18 137/75 H 97 01/21/18 23:48 01/21/18 23:48 01/21/18 23:48 01/21/18 23:48 01/22/18 04:00 Pulse Oximeter Continuous Start: 01/21/18 15: 00 Freq: RTQ4 Status: Active Document 01/22/18 04:00 SFL (Rec: 01/22/18 05:46 SFL [id number]) Pulse Oximetry Assessment Oxygen Saturation (92-100) 97 Oxygen Flow Rate (L/min) 1 Oxygen Delivery Method Nasal Cannula Fraction of Inspired Oxygen (FIO2) 24 Equipment Usage Equipment in Use Continuous SpO2 Machine # 3 Intake & Output 01/21/18 01/22/18 01/23/18 06:59 06:59 06:59 Intake Total 4400 Output Total 2500 Balance 1900 Weight 116.2 kg Physical Exam: Obese white female lying in bed. Caregiver sitting in the chair next to her. She is alert oriented and appropriate this morning. General appearance: PRESENT: mild distress, obese Head exam: PRESENT: normocephalic Respiratory exam: PRESENT: unlabored Cardiovascular exam: PRESENT: RRR Vascular exam: PRESENT: normal capillary refill Extremities exam: PRESENT: other - Left knee compressive dressing is clean dry and intact. Distal neurovascular examination is intact. Neurological exam: PRESENT: alert, awake, oriented to person, oriented to place , oriented to time, oriented to situation. ABSENT: motor sensory deficit Psychiatric exam: PRESENT: appropriate affect, normal mood. ABSENT: homicidal ideation, suicidal ideation Skin exam: PRESENT: dry, intact, warm. ABSENT: cyanosis, rash Results Impressions: Knee X-Ray 01/21/18 12:35 IMPRESSION: Left knee arthroplasty. Refer to operative note for further information. Status: Imported from PACS Assessment & Plan - Diagnosis (1) Arthritis of left knee Is this a current diagnosis for this admission?: Yes Plan: 62-year-old female postop day 1 from left knee arthroplasty. Patient will be mobilized with physical therapy. Anticipate shelter facility placement on . - Time Time Spent with patient: 15-24 minutes Anticipated discharge: SNF Within: within 48 hours
[2018-01-22] MEDS: OXYCODONE HCL SR 10 MG TABLET PO SCH ×2 (10:23→21:29)
[2018-01-22] MEDS: PRENATAL VITAMIN W DHA CAPSULE PO SCH (10:24)
[2018-01-22] MEDS: OXYCODONE HCL IR 5 MG TABLET PO PRN ×2 (10:24→19:53)
[2018-01-22] MEDS: SENNOSIDES/DOCUSATE 8.6-50 MG 1 EACH TABLET PO SCH ×2 (10:24→17:12)
[2018-01-22] MEDS: ASPIRIN 81 MG TABLET, ENT COATED PO SCH (10:30)
[2018-01-22] MEDS: RINGERS SOLUTION,LACTATED 1,000 ML IV PRN ×2 (14:44→21:32)
[2018-01-22] MEDS: INSULIN LISPRO 100 UNIT/ML 3 ML VIAL SUBCUT PRN ×2 (17:03→22:42)
[2018-01-23] MEDS: MORPHINE SULFATE 10 MG/ML INJ INJ PRN (02:01)
[2018-01-23] MEDS: IBUPROFEN 800 MG in NORMAL SALINE 250 ML IV SCH ×2 (02:01→09:52)
[2018-01-23] MEDS: OXYCODONE HCL IR 5 MG TABLET PO PRN ×3 (06:19→23:41)
[2018-01-23] MEDS: PREGABALIN 100 MG CAPSULE PO SCH ×3 (06:19→21:27)
[2018-01-23] MEDS: LANSOPRAZOLE 30 MG TAB.RAP.DR PO SCH (06:20)
[2018-01-23 06:44] LABS: HEMATOCRIT 32.4 % (36.0-47.0); HEMOGLOBIN 10.9 g/dL (12.0-15.5); MEAN CORPUSCULAR HEMOGLOBIN 28.1 pg (27.0-33.4); MEAN CORPUSCULAR HGB CONC 33.6 g/dL (32.0-36.0); MEAN CORPUSCULAR VOLUME 84 fl (80-97); RED BLOOD COUNT 3.87 10^6/uL (3.72-5.28); RED CELL DISTRIBUTION WIDTH 17.3 % (11.5-14.0); WHITE BLOOD COUNT 3.6 10^3/uL (4.0-10.5)
[2018-01-23 07:28] LABS: PLATELET COUNT 64 10^3/uL (150-450)
--- NOTE | 2018-01-23 07:51 | PDOC PROGRESS REPORT ---
Subjective Progress Note for:: 01/23/18 Reason For Visit: LEFT KNEE ARTHRITIS 62-year-old white female status post left knee arthroplasty postop day 2. Some issues with cooperation and limited progress with physical therapy yesterday. Physical Exam Vital Signs: Temp Pulse Resp BP Pulse Ox 36.6 C 109 H 18 137/76 H 93 01/22/18 23:29 01/22/18 23:29 01/22/18 23:29 01/22/18 23:29 01/23/18 03:58 Pulse Oximeter Continuous Start: 01/21/18 15: 00 Freq: RTQ4 Status: Active Document 01/23/18 03:58 CMI (Rec: 01/23/18 04:13 CMI [id number]) Pulse Oximetry Assessment Oxygen Saturation (92-100) 93 Oxygen Delivery Method Room Air Fraction of Inspired Oxygen (FIO2) 21 Equipment Usage Equipment in Use Continuous SpO2 Machine # 3 Intake & Output 01/22/18 01/23/18 01/24/18 06:59 06:59 06:59 Intake Total 4400 2549 Output Total 2500 Balance 1900 2549 Weight 116.2 kg 110.8 kg Physical Exam: Overweight if not obese middle-aged white female lying comfortably in hospital bed. Complains of being excruciating pain but my clinical impression is that to be exaggerated. General appearance: PRESENT: no acute distress, obese Respiratory exam: PRESENT: unlabored Cardiovascular exam: PRESENT: RRR Pulses: PRESENT: +1 pedal pulses bilateral GI/Abdominal exam: PRESENT: soft Rectal exam: PRESENT: deferred Extremities exam: PRESENT: other - Compressive dressing removed from the left knee this morning. Underlying OpSite dressing is clean dry and intact. Minimal pedal edema. Distal neurovascular examination is intact. Neurological exam: PRESENT: alert, awake, oriented to person, oriented to place , oriented to time, oriented to situation Skin exam: PRESENT: dry, intact, warm. ABSENT: cyanosis, rash Results Laboratory Results: 01/23/18 05:49 01/22/18 06:36 01/23/18 05:49 WBC 3.6 L RBC 3.87 Hgb 10.9 L Hct 32.4 L MCV 84 MCH 28.1 MCHC 33.6 RDW 17.3 H Plt Count 64 L Impressions: Knee X-Ray 01/21/18 12:35 IMPRESSION: Left knee arthroplasty. Refer to operative note for further information. Status: Imported from PACS Assessment & Plan - Diagnosis (1) Arthritis of left knee Is this a current diagnosis for this admission?: Yes Plan: 62-year-old status post left knee arthroplasty with limited progress with physical therapy. Anticipate the need for retirement facility placement. Authorization pending. - Time Time Spent with patient: 15-24 minutes Anticipated discharge: SNF Within: when bed available
[2018-01-23] MEDS: PRENATAL VITAMIN W DHA CAPSULE PO SCH (09:52)
[2018-01-23] MEDS: SENNOSIDES/DOCUSATE 8.6-50 MG 1 EACH TABLET PO SCH ×2 (09:52→18:01)
[2018-01-23] MEDS: ASPIRIN 81 MG TABLET, ENT COATED PO SCH (09:53)
[2018-01-23] MEDS: OXYCODONE HCL SR 10 MG TABLET PO SCH (09:53)
[2018-01-23] MEDS: INSULIN LISPRO 100 UNIT/ML 3 ML VIAL SUBCUT PRN ×3 (12:21→21:57)
[2018-01-23] MEDS: ZOLPIDEM TARTRATE 5 MG TABLET PO PRN (21:57)
[2018-01-24] MEDS: PREGABALIN 100 MG CAPSULE PO SCH ×3 (05:24→22:18)
[2018-01-24] MEDS: LANSOPRAZOLE 30 MG TAB.RAP.DR PO SCH (05:24)
[2018-01-24 06:50] LABS: HEMATOCRIT 32.1 % (36.0-47.0); HEMOGLOBIN 10.5 g/dL (12.0-15.5); RED BLOOD COUNT 3.82 10^6/uL (3.72-5.28); WHITE BLOOD COUNT 4.8 10^3/uL (4.0-10.5)
[2018-01-24 06:51] LABS: MEAN CORPUSCULAR HEMOGLOBIN 27.5 pg (27.0-33.4); MEAN CORPUSCULAR HGB CONC 32.7 g/dL (32.0-36.0); MEAN CORPUSCULAR VOLUME 84 fl (80-97); PLATELET COUNT 84 10^3/uL (150-450)
--- NOTE | 2018-01-24 07:05 | PDOC PROGRESS REPORT ---
Subjective Progress Note for:: 01/24/18 Reason For Visit: LEFT KNEE ARTHRITIS 62-year-old white female status post left knee arthroplasty with ongoing complaints of pain and limited participation in physical therapy because of cooperation. Physical Exam Vital Signs: Temp Pulse Resp BP Pulse Ox 37.5 C 109 H 16 117/65 92 01/23/18 23:12 01/23/18 23:12 01/23/18 23:12 01/23/18 23:12 01/24/18 04:37 Pulse Oximeter Continuous Start: 01/21/18 15: 00 Freq: RTQ4 Status: Active Document 01/24/18 04:37 CMI (Rec: 01/24/18 04:37 CMI [id number]) Pulse Oximetry Assessment Oxygen Saturation (92-100) 92 Oxygen Delivery Method Room Air Fraction of Inspired Oxygen (FIO2) 21 Equipment Usage Equipment in Use Continuous SpO2 Machine # 3 Intake & Output 01/23/18 01/24/18 01/25/18 06:59 06:59 06:59 Intake Total 2549 1504 Balance 2549 1504 Weight 110.8 kg 112.8 kg General appearance: PRESENT: no acute distress, mild distress, obese Head exam: PRESENT: normocephalic Respiratory exam: PRESENT: unlabored Cardiovascular exam: PRESENT: RRR Pulses: PRESENT: +1 pedal pulses bilateral GI/Abdominal exam: PRESENT: soft Rectal exam: PRESENT: deferred Extremities exam: PRESENT: other - Left knee dressing clean dry and intact Results Laboratory Results: 01/24/18 05:45 01/22/18 06:36 01/23/18 01/24/18 05:49 05:45 WBC 3.6 L 4.8 RBC 3.87 3.82 Hgb 10.9 L 10.5 L Hct 32.4 L 32.1 L MCV 84 84 MCH 28.1 27.5 MCHC 33.6 32.7 RDW 17.3 H 17.0 H Plt Count 64 L 84 L Impressions: Knee X-Ray 01/21/18 12:35 IMPRESSION: Left knee arthroplasty. Refer to operative note for further information. Status: Imported from PACS Assessment & Plan - Diagnosis (1) Arthritis of left knee Is this a current diagnosis for this admission?: Yes Plan: Transfer to [facility] facility when bed available
[2018-01-24] MEDS: OXYCODONE HCL IR 5 MG TABLET PO PRN ×3 (08:01→22:12)
[2018-01-24] MEDS: INSULIN LISPRO 100 UNIT/ML 3 ML VIAL SUBCUT PRN ×4 (08:01→22:12)
[2018-01-24] MEDS: PRENATAL VITAMIN W DHA CAPSULE PO SCH (09:16)
[2018-01-24] MEDS: ASPIRIN 81 MG TABLET, ENT COATED PO SCH (09:16)
[2018-01-24] MEDS: SENNOSIDES/DOCUSATE 8.6-50 MG 1 EACH TABLET PO SCH ×2 (09:16→17:04)
[2018-01-25] MEDS: OXYCODONE HCL IR 5 MG TABLET PO PRN ×3 (05:09→21:40)
[2018-01-25] MEDS: PREGABALIN 100 MG CAPSULE PO SCH ×3 (06:06→21:40)
[2018-01-25] MEDS: LANSOPRAZOLE 30 MG TAB.RAP.DR PO SCH (06:06)
[2018-01-25] MEDS: INSULIN LISPRO 100 UNIT/ML 3 ML VIAL SUBCUT PRN ×3 (07:28→16:19)
--- NOTE | 2018-01-25 08:38 | PDOC PROGRESS REPORT ---
Subjective Progress Note for:: 01/25/18 Reason For Visit: LEFT KNEE ARTHRITIS 62-year-old white female now postop day 4 status post left knee arthroplasty. Patient with limited progress with physical therapy and issues with cooperation. Physical Exam Vital Signs: Temp Pulse Resp BP Pulse Ox 37.0 C 101 H 18 119/59 L 95 01/25/18 00:00 01/25/18 00:00 01/25/18 00:00 01/25/18 00:00 01/25/18 04:00 Pulse Oximeter Continuous Start: 01/21/18 15: 00 Freq: RTQ4 Status: Active Document 01/25/18 04:00 SFL (Rec: 01/25/18 05:35 SFL [id number]) Pulse Oximetry Assessment Oxygen Saturation (92-100) 95 Oxygen Flow Rate (L/min) 1 Oxygen Delivery Method Nasal Cannula Fraction of Inspired Oxygen (FIO2) 24 Equipment Usage Equipment in Use Continuous SpO2 Machine # 3 Intake & Output 01/24/18 01/25/18 01/26/18 06:59 06:59 06:59 Intake Total 1504 536 Balance 1504 536 Weight 112.8 kg 113.6 kg General appearance: PRESENT: no acute distress, obese Pulses: PRESENT: +1 pedal pulses bilateral Extremities exam: PRESENT: other - Postoperative dressing on the left knee remains clean dry and intact. Results Laboratory Results: 01/24/18 05:45 01/22/18 06:36 Impressions: Knee X-Ray 01/21/18 12:35 IMPRESSION: Left knee arthroplasty. Refer to operative note for further information. Status: Imported from PACS Assessment & Plan - Diagnosis (1) Arthritis of left knee Is this a current diagnosis for this admission?: Yes Plan: 62-year-old white female status post left knee arthroplasty with postoperative slow progression and limited cooperation. Patient remains committed to discharge home and this seems to be not feasible with her current level of function. - Time Time Spent with patient: 15-24 minutes Anticipated discharge: SNF Within: Other
[2018-01-25] MEDS: ASPIRIN 81 MG TABLET, ENT COATED PO SCH (10:04)
[2018-01-25] MEDS: SENNOSIDES/DOCUSATE 8.6-50 MG 1 EACH TABLET PO SCH ×2 (10:04→17:12)
[2018-01-25] MEDS: PRENATAL VITAMIN W DHA CAPSULE PO SCH (10:04)
[2018-01-25] MEDS: ZOLPIDEM TARTRATE 5 MG TABLET PO PRN (21:40)
[2018-01-26] MEDS: PREGABALIN 100 MG CAPSULE PO SCH (05:25)
[2018-01-26] MEDS: LANSOPRAZOLE 30 MG TAB.RAP.DR PO SCH (05:25)
[2018-01-26] MEDS: OXYCODONE HCL IR 5 MG TABLET PO PRN (09:57)
[2018-01-26] MEDS: ASPIRIN 81 MG TABLET, ENT COATED PO SCH (09:57)
[2018-01-26] MEDS: SENNOSIDES/DOCUSATE 8.6-50 MG 1 EACH TABLET PO SCH (09:57)
[2018-01-26] MEDS: PRENATAL VITAMIN W DHA CAPSULE PO SCH (09:58)
[2018-01-26] MEDS: INSULIN LISPRO 100 UNIT/ML 3 ML VIAL SUBCUT PRN (12:22)
[2018-01-26 13:09] VITALS: BP 137/62
--- NOTE | 2018-01-26 14:29 | PDOC PROGRESS REPORT ---
Subjective Progress Note for:: 01/26/18 Subjective:: Patient sitting in a chair waiting for her son to pick her up. She is ready to go home today. No issues overnight. States she has a prescription and instructions and will follow-up in 10-14 days. Reason For Visit: LEFT KNEE ARTHRITIS Physical Exam Vital Signs: Temp Pulse Resp BP Pulse Ox 37.3 C 105 H 20 131/64 H 99 01/26/18 12:39 01/26/18 12:39 01/26/18 12:39 01/26/18 12:39 01/26/18 12:39 Pulse Oximeter Continuous Start: 01/21/18 15: 00 Freq: RTQ4 Status: Active Document 01/25/18 23:06 [facility] (Rec: 01/25/18 23:07 [facility] [id number]) Pulse Oximetry Assessment Oxygen Saturation (92-100) 97 Oxygen Delivery Method Room Air Fraction of Inspired Oxygen (FIO2) 21 Equipment Usage Equipment in Use Continuous SpO2 Machine # N-3 Intake & Output 01/25/18 01/26/18 01/27/18 06:59 06:59 05:59 Intake Total 536 1124 Balance 536 1124 Weight 113.6 kg 113.5 kg Adult Front & Back Image: 1 - Incision is dry clean and intact with mild bloody drainage. Swelling is appropriate with negative Homans sign and neurovascular intact extremity. Range of motion is -10 to about 70 degrees. Results Laboratory Results: 01/24/18 05:45 01/22/18 06:36 Impressions: Knee X-Ray 01/21/18 12:35 IMPRESSION: Left knee arthroplasty. Refer to operative note for further information. Assessment & Plan - Plan Summary Plan Summary: 62-year-old female status post left total knee arthroplasty who is ready to be discharged today. Patient states son is coming to pick her up. Prescriptions are in the chart. She will follow-up with Dr. Mcfarland in 10-14 days after surgery
--- NOTE | 2018-01-30 07:19 | PDOC DISCHARGE SUMMARY ---
General - Admit/Disc Date/PCP Admission Date/Primary Care Provider: 01/21/18 07:40 DAMIEN ANNA MD Discharge Date: 01/26/18 - Discharge Diagnosis (1) Arthritis of left knee Is this a current diagnosis for this admission?: Yes - Additional Information Resuscitation Status: Full Code Discharge Diet: Diabetic Discharge Activity: Activity As Tolerated, Balance Activity w/Rest, Slowly Increase Activity Home Medications: Cyclobenzaprine HCl 10 mg PO BIDP PRN 11/23/15 Diclofenac Sodium [Voltaren] 100 gm TP DAILY 11/23/15 Insulin Aspart [Novolog Flexpen] 0 unit SUBCUT .SLD SCALE PRN 11/23/15 Liraglutide [Victoza 2-Cornelio] 1.8 units DAILY 11/23/15 Oxycodone HCl 10 mg PO Q4HP PRN 11/23/15 Trazodone HCl 100 mg PO DAILYP PRN 11/23/15 Pregabalin [Lyrica] 100 mg PO TID 10/26/16 Ipratropium/Albuterol Sulfate [Combivent Respimat 4 gm Mdi] 1 puff PO DAILY 01/10 Insulin NPH Human Isophane [Humulin N] 65 unit SQ BID 08/13/17 Oxycodone HCl [Oxy-Ir 5 mg Tablet] 5 mg PO Q6HP PRN tablet 08/16/17 History of Present Illness History of Present Illness: AUSTYN RODRIGUEZ is a 62 year old female Patient is a 62-year-old white female with progressive left knee pain and functional disability secondary osteoarthritis. Patient is admitted for elective left knee arthroplasty. Hospital Course Hospital Course: The patient is admitted through the operating room where she undergoes unconjugated left knee arthroplasty. Postoperative course was notable for lack of cooperation with physical therapy, mental status changes, and overall lack of cooperation. This prolonged her hospitalization. Physical Exam Vital Signs: Temp Pulse Resp BP Pulse Ox 37.3 C 105 H 20 131/64 H 99 01/26/18 12:39 01/26/18 12:39 01/26/18 12:39 01/26/18 12:39 01/26/18 12:39 Pulse Oximeter Continuous Start: 01/21/18 15: 00 Freq: RTQ4 Status: Discharge Document 01/25/18 23:06 [facility] (Rec: 01/25/18 23:07 [facility] [id number]) Pulse Oximetry Assessment Oxygen Saturation (92-100) 97 Oxygen Delivery Method Room Air Fraction of Inspired Oxygen (FIO2) 21 Equipment Usage Equipment in Use Continuous SpO2 Machine # N-3 General appearance: PRESENT: mild distress, obese Head exam: PRESENT: normocephalic Respiratory exam: PRESENT: unlabored Cardiovascular exam: PRESENT: RRR Pulses: PRESENT: +1 pedal pulses bilateral Vascular exam: PRESENT: normal capillary refill GI/Abdominal exam: PRESENT: soft Rectal exam: PRESENT: deferred Extremities exam: PRESENT: other - Left knee dressing clean dry and intact Skin exam: PRESENT: dry, intact, warm. ABSENT: cyanosis, rash Results Laboratory Results: 01/24/18 05:45 01/22/18 06:36 Impressions: Knee X-Ray 01/21/18 12:35 IMPRESSION: Left knee arthroplasty. Refer to operative note for further information. Status: Imported from PACS Qualifiers - * PATIENT BEING DISCHARGED WITH ANY OF THE FOLLOWING DIAGNOSIS: No VTE patient discharged on overlapping Therapy?: Yes Plan Discharge Plan: Patient to be discharged home and accompanied by her sister with home health services and DME. Follow-up with Dr. Mcfarland [facility] for surgery in 2 weeks for staple removal.
== END 2018-01-26 15:19 | disposition home health service (06) | DRG 470 ==
LOC: INOR 01-21 07:40 → 4S 01-21 14:55
PROVIDERS: ADMIT Orthopaedic Surgery; ATTEND Orthopaedic Surgery
PROC: 0SRD0J9 Replacement of Left Knee Joint with Synthetic Substitute, Cemented, Open Approach (ICD-10-PCS; principal; 2018-01-21 11:15)
PROC: 3E02340 Introduction of Influenza Vaccine into Muscle, Percutaneous Approach (ICD-10-PCS; 2018-01-26)
DX: M17.12 Unilateral primary osteoarthritis, left knee (principal); Z68.41 Body mass index [BMI] 40.0-44.9, adult; Z96.651 Presence of right artificial knee joint; E11.9 Type 2 diabetes mellitus without complications; I10 Essential (primary) hypertension; E66.9 Obesity, unspecified; Z90.710 Acquired absence of both cervix and uterus; Z79.82 Long term (current) use of aspirin; Z79.4 Long term (current) use of insulin; Z79.899 Other long term (current) drug therapy; Z91.19 Patient's noncompliance with other medical treatment and regimen; Z23 Encounter for immunization
CPT/HCPCS: 01402; 36415; 80048; 82962; 85027; 88305; 88311; 90471; 90686; 93005; 93010; 94762; 94799; C1713; C1776; G0008; J0131; J0330; J0690; J1100; J1741; J1815; J2060; J2250; J2270; J2405; J2704; J3010; J3370; J3490; J7050; J7060; J7120

== ENCOUNTER 2018-10-23 18:08 | Emergency (ER) | payer OTHER, MEDICAID ==
[2018-10-23 18:15] VITALS: BP 168/85
[2018-10-23] MEDS ORDERED: HYDROXYZINE HCL 10 MG TABLET PO ONE (19:53)
[2018-10-23] MEDS ORDERED: HYDROXYZINE PAMOATE 25 MG CAPSULE PO ONE (19:54)
--- NOTE | 2018-10-23 20:00 | ER Document Report ---
HPI - HPI Patient complains to provider of: itching Time Seen by Provider: 10/23/18 19:46 Context: 63-year-old female with hypertension, insulin pen diabetes mellitus presents emergency department with chief complaint of itching for 1 week. Patient states she is taking Benadryl and pfer-pyz-vaoxzft hydrocortisone ointment without relief. Patient has stopped taking all her medications because she does not know what is causing it even though she is been on the same medications long- term with no issues. She does acknowledge that she changed laundry soaps approximately 1 week ago. She denies any change in body soap, lotions, or changes in her diet. - REPRODUCTIVE Reproductive: DENIES: : Past Medical History - Social History Smoking Status: Former Smoker Frequency of alcohol use: None Drug Abuse: None Family History: Reviewed & Not Pertinent Patient has suicidal ideation: No Patient has homicidal ideation: No - Past Medical History Cardiac Medical History: Reports: Hx Hypercholesterolemia, Hx Hypertension Denies: Hx Atrial Fibrillation, Hx Congestive Heart Failure, Hx Coronary Artery Disease, Hx Heart Attack, Hx Peripheral Vascular Disease, Hx Pulmonary Embolism, Hx Heart Murmur Pulmonary Medical History: Reports: Hx Bronchitis, Hx COPD Denies: Hx Asthma, Hx Pneumonia, Hx Respiratory Failure, Hx Sleep Apnea, Hx Tuberculosis Neurological Medical History: Denies: Hx Cerebrovascular Accident, Hx Seizures Endocrine Medical History: Reports: Hx Diabetes Mellitus Type 2. Denies: Hx Graves' Disease, Hx Hyperthyroidism, Hx Hypothyroidism Renal/ Medical History: Denies: Hx Kidney Stones, Hx Peritoneal Dialysis Malignancy Medical History: Denies: Hx Lung Cancer GI Medical History: Reports: Hx Gastroesophageal Reflux Disease. Denies: Hx Crohn's Disease, Hx Hiatal Hernia, Hx Irritable Bowel, Hx Liver Failure, Hx Pancreatitis, Hx Ulcer Musculoskeletal Medical History: Reports Hx Arthritis - knees, Denies Hx Fibromyalgia, Denies Hx Muscular Dystrophy, Denies Hx Systemic Lupus Erythematosus Traumatic Medical History: Denies: Hx Fractures Past Surgical History: Reports: Hx Hysterectomy, Hx Orthopedic Surgery - bilateral knee replacement; broken wrist. Denies: Hx Appendectomy, Hx Bowel Surgery, Hx Section, Hx Cholecystectomy, Hx Colostomy, Hx Coronary Artery Bypass Graft, Hx Gastric Bypass Surgery, Hx Herniorrhaphy, Hx Mastectomy, Hx Pacemaker, Hx Tonsillectomy, Hx Tubal Ligation - Immunizations Immunizations up to date: Yes Hx Diphtheria, Pertussis, Tetanus Vaccination: Yes Hx Pneumococcal Vaccination: 12/24/14 Vertical Provider Document - CONSTITUTIONAL Notes: PHYSICAL EXAMINATION: Reviewed vital signs and charting by RN GENERAL: Alert, interacts well. No acute distress. HEAD: Normocephalic, atraumatic. EYES: Pupils equal and round. Extraocular movements intact. ENT: Oral mucosa moist, tongue midline. EXTREMITIES: Moves all 4 extremities spontaneously. No edema, No cyanosis. PSYCH: Normal affect, normal mood. SKIN: Warm, dry, normal turgor. No rashes. Areas of scratch mora from patient scratching herself - INFECTION CONTROL TRAVEL OUTSIDE OF THE [place] IN LAST 30 DAYS: No Course - Re-evaluation Re-evalutation: 10/23/18 19:59 Patient is generally well-appearing and there is no rash evident on her body. She states that she is "itching from the inside out, will can you give me to make it stop". She was given a dose of Atarax 50 mg once here she is not driving I gave her a short prescription to go home with. No evidence of anaphylaxis or any concerning etiology at this time. She is stable for discharge - Vital Signs Vital signs: Temp Pulse Resp BP Pulse Ox 97.9 F 86 20 168/85 H 96 10/23/18 18:14 10/23/18 18:14 10/23/18 18:14 10/23/18 18:14 10/23/18 18:14 Discharge - Discharge Clinical Impression: Itching Condition: Good Disposition: HOME, SELF-CARE Additional Instructions: You were seen in the emergency department this evening for itching. Like you said, it is most likely related to changing her detergent and not to medications if you previously had no problems with them. Please resume taking your home medications. I have given you a prescription for Atarax which is good for itching. You can take 50 mg every 6 hours as needed for itching. Please change back to-year-old laundry soap. If you develop any acute shortness of breath, swelling in your throat, nausea or vomiting, hives, or any other concerning symptoms please immediately return to the emergency department. Prescriptions: Hydroxyzine HCl [Atarax 50 mg Tablet] 50 mg PO PRN PRN #14 tablet PRN Reason: Referrals: DAMIEN ANNA MD [Primary Care Provider] - Follow up as needed
== END 2018-10-23 20:30 | disposition home or self-care (01) ==
LOC: ER 18:08
DX: L29.9 Pruritus, unspecified (principal); I10 Essential (primary) hypertension; J44.9 Chronic obstructive pulmonary disease, unspecified; E11.9 Type 2 diabetes mellitus without complications; Z87.891 Personal history of nicotine dependence
CPT/HCPCS: 99282

== ENCOUNTER 2018-12-13 04:24 | Emergency (ER) | payer OTHER, MEDICAID ==
[2018-12-13 07:11] LABS: APPEARANCE,URINE CLEAR; BILIRUBIN,URINE NEGATIVE (NEGATIVE); COLOR,URINE YELLOW; GLUCOSE, URINE >=500 mg/dL (NEGATIVE); KETONES,URINE NEGATIVE (NEGATIVE); LEUKOCYTE ESTERASE,URINE NEGATIVE (NEGATIVE); NITRITE,URINE NEGATIVE (NEGATIVE); PROTEIN,URINE NEGATIVE (NEGATIVE); URINE SPECIFIC GRAVITY 1.028; UROBILINOGEN,URINE NEGATIVE mg/dL (<2.0)
[2018-12-13 07:15] LABS: ABSOLUTE LYMPHOCYTES (AUTO) 0.8 10^3/uL (0.5-4.7); ABSOLUTE MONOCYTES (AUTO) 0.4 10^3/uL (0.1-1.4); ABSOLUTE NEUT (AUTO) 2.2 10^3/uL (1.7-8.2); ALBUMIN 3.9 g/dL (3.5-5.0); ALKALINE PHOSPHATASE 211 U/L (38-126); ANION GAP 10 (5-19); ASPARTATE AMINO TRANSFERASE 38 U/L (14-36); BASOPHILS % (AUTO) 0.2 % (0-2); BILIRUBIN,DIRECT 0.2 mg/dL (0.0-0.4); BILIRUBIN,TOTAL 0.5 mg/dL (0.2-1.3); BLOOD UREA NITROGEN 12 mg/dL (7-20); CARBON DIOXIDE 29 mmol/L (22-30); CHLORIDE 100 mmol/L (98-107); CREATINE KINASE 128 U/L (30-135); EOSINOPHILS % (AUTO) 0.6 % (0-6); GLUCOSE 328 mg/dL (75-110); HEMATOCRIT 34.8 % (36.0-47.0); HEMOGLOBIN 11.1 g/dL (12.0-15.5); LYMPHOCYTES % (AUTO) 23.2 % (13-45); MEAN CORPUSCULAR HEMOGLOBIN 26.6 pg (27.0-33.4); MEAN CORPUSCULAR VOLUME 83 fl (80-97); MONOCYTES % (AUTO) 11.9 % (3-13); POTASSIUM 4.1 mmol/L (3.6-5.0); RED BLOOD COUNT 4.18 10^6/uL (3.72-5.28); SEGMENTED NEUTROPHILS % (AUTO) 64.1 % (42-78); TOTAL CELLS COUNTED % (AUTO) 100 %; TOTAL PROTEIN 7.9 g/dL (6.3-8.2); WHITE BLOOD COUNT 3.4 10^3/uL (4.0-10.5)
[2018-12-13 07:28] LABS: CREATINE KINASE MB 1.21 ng/mL (<4.55); NT PRO BNP 39 pg/mL (5-900)
[2018-12-13 07:30] LABS: TROPONIN I < 0.012 ng/mL
--- NOTE | 2018-12-13 07:32 | RADIOLOGY REPORT (SQ) ---
EXAM DESCRIPTION: XR CHEST 1 VIEW COMPLETED DATE/TME: 12/13/2018 04:31 CLINICAL HISTORY: difficulty breathing COMPARISON: 12/26/2017 FINDINGS: Single frontal view of the chest. Cardiomediastinal silhouette: Heart size is stable. Lungs: No consolidation, pneumothorax, or pleural effusion. Low lung volumes. Bones: No acute osseous abnormality. Upper abdomen: No abnormality identified. IMPRESSION: 1. No acute pulmonary process identified.
--- NOTE | 2018-12-13 07:38 | EKG REPORT ---
SEVERITY:- BORDERLINE ECG - SINUS RHYTHM LVH BY VOLTAGE : Confirmed by: Bhargav Powell MD 13-Dec-2018 07:37:19
[2018-12-13 07:41] LABS: PLATELET COUNT 82 10^3/uL (150-450)
[2018-12-13 09:23] VITALS: BP 155/88
--- NOTE | 2018-12-13 09:28 | ER Document Report ---
ED General - General Chief Complaint: Breathing Difficulty Stated Complaint: SHORTNESS OF BREATH Time Seen by Provider: 12/13/18 08:50 Primary Care Provider: SONA TAPIA MD [Primary Care Provider] - Follow up as needed TRAVEL OUTSIDE OF THE [place] IN LAST 30 DAYS: No - HPI Notes: Patient is a 63-year-old female with a history of insulin-dependent diabetes, hypertension, obesity, COPD, anxiety, panic attacks who presents complaining of having an anxiety attack earlier this morning. Patient states that she is hyperventilating which prompted her to come to the emergency department. Patient states that she has since calmed down and is feeling much better. She is able to eat and drink without difficulty. She is urinating normally and having normal bowel movements. Patient states that she has been having issues with anxiety and having attacks such as this intermittently for years. Patient states that she was recently seen by 2 of her doctors earlier this week and was placed on a fluid pill to help with her edema in the legs. No history of CAD, DVT, PE. Denies any prolonged immobilization, distance travel, recent surgery/trauma, personal cancer history, hormone use, current smoking. Denies any headache, fever, neck pain, URI, sore throat, chest pain, palpitations, syncope, cough, shortness of breath, wheeze, dyspnea, abdominal pain, nausea/vomiting/diarrhea, urinary retention, dysuria, hematuria, or rash. - Related Data Allergies/Adverse Reactions: dulaglutide [From Trulicity] Allergy (Verified 10/23/18 19:36) exenatide [From Byetta] Allergy (Verified 10/23/18 18:09) Past Medical History - Social History Smoking Status: Former Smoker Family History: Reviewed & Not Pertinent Patient has suicidal ideation: No Patient has homicidal ideation: No - Past Medical History Cardiac Medical History: Reports: Hx Hypercholesterolemia, Hx Hypertension Denies: Hx Atrial Fibrillation, Hx Congestive Heart Failure, Hx Coronary Artery Disease, Hx Heart Attack, Hx Peripheral Vascular Disease, Hx Pulmonary Embolism, Hx Heart Murmur Pulmonary Medical History: Reports: Hx Bronchitis, Hx COPD Denies: Hx Asthma, Hx Pneumonia, Hx Respiratory Failure, Hx Sleep Apnea, Hx Tuberculosis Neurological Medical History: Denies: Hx Cerebrovascular Accident, Hx Seizures Endocrine Medical History: Reports: Hx Diabetes Mellitus Type 2. Denies: Hx Graves' Disease, Hx Hyperthyroidism, Hx Hypothyroidism Renal/ Medical History: Denies: Hx Kidney Stones, Hx Peritoneal Dialysis Malignancy Medical History: Denies: Hx Lung Cancer GI Medical History: Reports: Hx Gastroesophageal Reflux Disease. Denies: Hx Crohn's Disease, Hx Hiatal Hernia, Hx Irritable Bowel, Hx Liver Failure, Hx Pancreatitis, Hx Ulcer Musculoskeletal Medical History: Reports Hx Arthritis - knees, Denies Hx Fibromyalgia, Denies Hx Muscular Dystrophy, Denies Hx Systemic Lupus Erythematosus Traumatic Medical History: Denies: Hx Fractures Past Surgical History: Reports: Hx Hysterectomy, Hx Orthopedic Surgery - bilateral knee replacement; broken wrist. Denies: Hx Appendectomy, Hx Bowel Surgery, Hx Section, Hx Cholecystectomy, Hx Colostomy, Hx Coronary Artery Bypass Graft, Hx Gastric Bypass Surgery, Hx Herniorrhaphy, Hx Mastectomy, Hx Pacemaker, Hx Tonsillectomy, Hx Tubal Ligation - Immunizations Immunizations up to date: Yes Hx Diphtheria, Pertussis, Tetanus Vaccination: Yes Hx Pneumococcal Vaccination: 12/24/14 Review of Systems - Review of Systems -: Yes All other systems reviewed and negative Physical Exam - Vital signs Vitals: Temp Pulse Resp BP Pulse Ox 98.0 F 94 22 H 150/70 H 94 12/13/18 04:28 12/13/18 04:28 12/13/18 04:28 12/13/18 04:28 12/13/18 04:28 - Notes Notes: PHYSICAL EXAMINATION: GENERAL: Well-appearing, well-nourished and in no acute distress. A&Ox4. Answers questions appropriately. HEAD: Atraumatic, normocephalic. EYES: Pupils equal round and reactive to light, extraocular movements intact, sclera anicteric, conjunctiva are normal. ENT: Nares patent and without discharge. oropharynx clear without exudates. No tonsilar hypertrophy or erythema. Moist mucous membranes. NECK: Normal range of motion, supple without lymphadenopathy LUNGS: Breath sounds clear to auscultation bilaterally and equal. No wheezes rales or rhonchi. HEART: Regular rate and rhythm without murmurs, rubs, gallops. ABDOMEN: Soft, nontender, nondistended abdomen. No guarding, no rebound. No masses appreciated. Normal bowel sounds present. No CVA tenderness bilaterally. Musculoskeletal: FROM to passive/active. Strength 5+/5. Ariadne neg. No asymmetry to LE's. Extremities: 1+ pitting edema b/l LE's. Peripheral pulses 2+. Capillary refill less than 3 seconds. NEUROLOGICAL: Normal speech, normal gait. PSYCH: Normal mood, normal affect. SKIN: Warm, Dry, normal turgor, no rashes or lesions noted. Course - Re-evaluation Re-evalutation: 12/13/18 09:27 Patient is an afebrile, well-hydrated 63-year-old female who presents to the ED with anxiousness. Vitals are acceptable without any significant tachycardia, tachypnea, or hypoxia. When I was evaluating the patient, her RR was 14-16 but when she tried to sit up (struggle with her weight-needed assistance), her RR went to low 20's. PE is otherwise unremarkable. Patient is nontoxic-appearing and is tolerating p.o. without any difficulties. Pt is currently asymptomatic. Pt states that she felt anxious and began hyperventilating which prompted her to come here which has since resolved. CBC, CMP, EKG/cardiac enzymes, chest x-ray are all unremarkable for any acute pathology. Her labs are near her baseline in general. Wells score of 0. Patient does not have nor has she ever had any chest pain, dyspnea, or shortness of breath. Patient's presentation and symptomatology creates low suspicion for ACS, PE, pneumothorax, pericarditis, dissection, respiratory compromise, severe dehydration, sepsis, meningitis, or other systemic emergent condition at this time. Patient is aware that this condition can change from initial presentation and she needs to monitor symptoms closely and seek medical attention for any acute changes. Pt is feeling better and would like to go home. Recommend conservative measures for symptoms. Recheck with your PCM in 2-3 days. Consider consult with Cardiology. Return to the ED with any worsening/concerning symptoms otherwise as reviewed in discharge. Patient is in agreement. - Vital Signs Vital signs: Temp Pulse Resp BP Pulse Ox 98.0 F 94 24 H 153/80 H 99 12/13/18 04:28 12/13/18 04:28 12/13/18 07:01 12/13/18 07:01 12/13/18 07:01 - Laboratory Result Diagrams: 12/13/18 06:39 12/13/18 06:39 Laboratory results interpreted by me: 12/13/18 12/13/18 12/13/18 05:32 06:39 06:39 WBC 3.4 L Hgb 11.1 L Hct 34.8 L MCH 26.6 L RDW 17.0 H Plt Count 82 L Glucose 328 H AST 38 H Alkaline Phosphatase 211 H Urine Glucose (UA) >=500 H Discharge - Discharge Clinical Impression: Anxiousness Condition: Stable Disposition: HOME, SELF-CARE Additional Instructions: Maintain adequate fluid and food intake Take home medications as directed Low sodium/fat diet Monitor blood pressure daily and keep a log Monitor symptoms for any acute changes Recheck with your PCM in 2-3 days Consider a follow-up with cardiology Return to the ED with any worsening symptoms and/or development of fever, headache, chest pain, palpitations, syncope, shortness of breath, trouble breathing, abdominal pain, n/v/d, blood in stool/urine, loss of control of bowel/bladder, urinary retention, muscle weakness/paralysis, numbness/tingling, or other worsening symptoms that are concerning to you. Forms: Elevated Blood Pressure Referrals: SONA TAPIA MD [Primary Care Provider] - 12/16/18
== END 2018-12-13 09:44 | disposition home or self-care (01) ==
LOC: ER 04:24
DX: F41.9 Anxiety disorder, unspecified (principal); R06.02 Shortness of breath; E11.9 Type 2 diabetes mellitus without complications; Z79.4 Long term (current) use of insulin; I10 Essential (primary) hypertension; E66.9 Obesity, unspecified; J44.9 Chronic obstructive pulmonary disease, unspecified; Z87.891 Personal history of nicotine dependence
CPT/HCPCS: 36415; 71045; 80053; 81001; 82550; 82553; 83880; 84484; 85025; 93005; 93010; 99284

== ENCOUNTER → 2018-12-31 | Outpatient (CLI) | payer OTHER, MEDICAID ==
--- NOTE | 2018-12-31 16:54 | RADIOLOGY REPORT (SQ) ---
EXAM DESCRIPTION: NM 3 PHASE BONE SCAN COMPLETED DATE/TIME: 12/31/2018 1:45 pm REASON FOR STUDY: PAIN IN LEFT KNEE (M25.562) M25.562 PAIN IN LEFT KNEE COMPARISON: No available imaging studies for comparison. RADIONUCLIDE AND DOSE: 22 millicuries Tc99m MDP. The route of agent administration: Intravenous. ADDITIONAL DRUGS AND DOSES: None. TECHNIQUE: Following injection of the radiopharmaceutical, serial blood flow images acquired. Equil ibrium blood pool images then acquired. Routine delayed images at 3 hour acquired of the areas of cl inical concern with additional focused images as needed. AREA OF INTEREST: Knees. LIMITATIONS: None. FINDINGS: VASCULAR FLOW IMAGES: No asymmetry or focal areas of hyperemia. BLOOD POOL IMAGES: No asymmetry or focal areas of soft-tissue hyper-perfusion. BONES: Symmetric accumulation of the radiotracer around the prostheses. OTHER: No other finding. IMPRESSION: No scintigraphic evidence of aseptic loosening of the knee arthroplasties. COMMENT: Quality measure 147: Current bone scan is compared with any available plain radiographs, p rior bone scans, and CT/MRI. TECHNICAL DOCUMENTATION: JOB ID: [id number] [employer]- All Rights Reserved Reading location - IP/workstation name: [email or web address]
== END ==
LOC: RAD 09:55
PROVIDERS: ATTEND Orthopaedic Surgery
DX: M25.562 Pain in left knee (principal)
CPT/HCPCS: 78315; A9561; Q9969

== ENCOUNTER → 2019-01-16 | Outpatient (CLI) | payer OTHER, MEDICAID ==
[2019-01-16 12:01] LABS: HEMATOCRIT 39.6 % (36.0-47.0); HEMOGLOBIN 12.8 g/dL (12.0-15.5); MEAN CORPUSCULAR HEMOGLOBIN 29.3 pg (27.0-33.4); MEAN CORPUSCULAR HGB CONC 32.5 g/dL (32.0-36.0); MEAN CORPUSCULAR VOLUME 90 fl (80-97); RED BLOOD COUNT 4.39 10^6/uL (3.72-5.28); RED CELL DISTRIBUTION WIDTH 22.3 % (11.5-14.0)
[2019-01-16 12:03] LABS: APPEARANCE,URINE SLIGHTLY-CLOUDY; BILIRUBIN,URINE NEGATIVE (NEGATIVE); COLOR,URINE AMBER; GLUCOSE, URINE >=500 mg/dL (NEGATIVE); KETONES,URINE TRACE mg/dL (NEGATIVE); LEUKOCYTE ESTERASE,URINE NEGATIVE (NEGATIVE); NITRITE,URINE NEGATIVE (NEGATIVE); PROTEIN,URINE 30 mg/dL (NEGATIVE); URINE SPECIFIC GRAVITY 1.043
[2019-01-16 12:27] LABS: ANION GAP 9 (5-19); BLOOD UREA NITROGEN 6 mg/dL (7-20); CALCIUM 8.1 mg/dL (8.4-10.2); CARBON DIOXIDE 29 mmol/L (22-30); CHLORIDE 104 mmol/L (98-107); GLUCOSE 269 mg/dL (75-110); POTASSIUM 4.3 mmol/L (3.6-5.0)
[2019-01-16 12:29] LABS: PLATELET COUNT 55 10^3/uL (150-450)
[2019-01-16 12:39] LABS: ABSOLUTE LYMPHOCYTES# (MANUAL) 0.6 10^3/uL (0.5-4.7); ABSOLUTE MONOCYTES # (MANUAL) 0.2 10^3/uL (0.1-1.4); BASOPHILS % (MANUAL) 0 % (0-2); EOSINOPHILS % (MANUAL) 0 % (0-6); LYMPHOCYTES % (MANUAL) 32 % (13-45); MONOCYTES % (MANUAL) 9 % (3-13); SEGMENTED NEUTROPHILS % (MAN) 59 % (42-78); TOTAL CELLS COUNTED 100
[2019-01-16 12:43] LABS: ANISOCYTOSIS 2+; PLATELET COMMENT DECREASED
[2019-01-16 12:44] LABS: WHITE BLOOD COUNT 1.9 10^3/uL (4.0-10.5)
--- NOTE | 2019-01-16 12:54 | RADIOLOGY REPORT (SQ) ---
EXAM DESCRIPTION: CHEST PA/LATERAL COMPLETED DATE/TIME: 01/16/2019 11:15 am REASON FOR STUDY: PRE-OP COMPARISON: 12/13/2018 EXAM PARAMETERS: NUMBER OF VIEWS: two views TECHNIQUE: Digital Frontal and Lateral radiographic views of the chest acquired. RADIATION DOSE: NA LIMITATIONS: none FINDINGS: LUNGS AND PLEURA: Low lung volumes. No opacities, masses or pneumothorax. No pleural eff usion. MEDIASTINUM AND HILAR STRUCTURES: No masses or contour abnormalities. HEART AND VASCULAR STRUCTURES: Heart normal size. No evidence for failure. BONES: No acute findings. HARDWARE: None in the chest. OTHER: No other significant finding. IMPRESSION: 1. No significant interval changes since the previous examination dated 12/13/2009. Low lung volumes. No acute findings. TECHNICAL DOCUMENTATION: JOB ID: [id number] [employer]- All Rights Reserved Reading location - IP/workstation name: [email or web address]
--- NOTE | 2019-01-16 20:19 | EKG REPORT ---
SEVERITY:- NORMAL ECG - SINUS RHYTHM : Confirmed by: Shaista Purdy MD 16-Jan-2019 20:17:42
[2019-01-17 12:12] LABS: PATH REVIEW PATHOLOGIST REVIEWED
== END ==
LOC: OD 10:32
PROVIDERS: ATTEND Orthopaedic Surgery
DX: Z01.810 Encounter for preprocedural cardiovascular examination (principal); Z01.811 Encounter for preprocedural respiratory examination; Z01.812 Encounter for preprocedural laboratory examination; M25.562 Pain in left knee; E11.9 Type 2 diabetes mellitus without complications; I10 Essential (primary) hypertension
CPT/HCPCS: 36415; 71046; 80048; 81001; 83036; 85025; 93005; 93010

== ENCOUNTER 2019-07-14 11:48 | Emergency (ER) | payer OTHER, MEDICAID ==
--- NOTE | 2019-07-14 11:51 | ER Document Report ---
ED Medical Screen (RME) - General Chief Complaint: Chest Pain Stated Complaint: BREATHING PROBLEMS,CHEST PAIN Time Seen by Provider: 07/14/19 11:50 Primary Care Provider: ARLETTE BRADY MD [Primary Care Provider] - Follow up as needed Mode of Arrival: Ambulatory Information source: Patient Notes: 63-year-old female presented to ED for complaint of congestive heart failure peripheral edema shortness of breath and chest pain. He is also having frequency of urination. She states she took her Lasix this morning and she is already been to the bathroom several times since she arrived. Patient is alert oriented speaking in full sentences. I have greeted and performed a rapid initial assessment of this patient. A comprehensive ED assessment and evaluation of the patient, analysis of test results and completion of medical decision making process will be conducted by an additional ED providers. TRAVEL OUTSIDE OF THE [place] IN LAST 30 DAYS: No - Related Data Allergies/Adverse Reactions: dulaglutide [From Trulicity] Allergy (Verified 10/23/18 19:36) exenatide [From Byetta] Allergy (Verified 10/23/18 18:09) Past Medical History - Past Medical History Cardiac Medical History: Reports: Hx Hypercholesterolemia, Hx Hypertension Denies: Hx Atrial Fibrillation, Hx Congestive Heart Failure, Hx Coronary Artery Disease, Hx Heart Attack, Hx Peripheral Vascular Disease, Hx Pulmonary Embolism, Hx Heart Murmur Pulmonary Medical History: Reports: Hx Bronchitis, Hx COPD Denies: Hx Asthma, Hx Pneumonia, Hx Respiratory Failure, Hx Sleep Apnea, Hx Tuberculosis Neurological Medical History: Denies: Hx Cerebrovascular Accident, Hx Seizures Endocrine Medical History: Reports: Hx Diabetes Mellitus Type 2. Denies: Hx Graves' Disease, Hx Hyperthyroidism, Hx Hypothyroidism Renal/ Medical History: Denies: Hx Kidney Stones, Hx Peritoneal Dialysis Malignancy Medical History: Denies: Hx Lung Cancer GI Medical History: Reports: Hx Gastroesophageal Reflux Disease. Denies: Hx Crohn's Disease, Hx Hiatal Hernia, Hx Irritable Bowel, Hx Liver Failure, Hx Pancreatitis, Hx Ulcer Musculoskeltal Medical History: Reports Hx Arthritis - knees, Denies Hx Fibromyalgia, Denies Hx Muscular Dystrophy, Denies Hx Systemic Lupus Erythematosus Traumatic Medical History: Denies: Hx Fractures Past Surgical History: Reports: Hx Hysterectomy, Hx Orthopedic Surgery - bilateral knee replacement; broken wrist. Denies: Hx Appendectomy, Hx Bowel Surgery, Hx Section, Hx Cholecystectomy, Hx Colostomy, Hx Coronary Artery Bypass Graft, Hx Gastric Bypass Surgery, Hx Herniorrhaphy, Hx Mastectomy, Hx Pacemaker, Hx Tonsillectomy, Hx Tubal Ligation - Immunizations Immunizations up to date: Yes Hx Diphtheria, Pertussis, Tetanus Vaccination: Yes Doctor's Discharge - Discharge Referrals: ARLETTE BRADY MD [Primary Care Provider] - Follow up as needed
[2019-07-14 12:44] VITALS: BP 149/78
[2019-07-14 12:58] LABS: APPEARANCE,URINE CLEAR; BILIRUBIN,URINE NEGATIVE (NEGATIVE); COLOR,URINE COLORLESS; GLUCOSE, URINE NEGATIVE (NEGATIVE); KETONES,URINE NEGATIVE (NEGATIVE); PROTEIN,URINE NEGATIVE (NEGATIVE); URINE SPECIFIC GRAVITY 1.004; UROBILINOGEN,URINE NEGATIVE mg/dL (<2.0)
[2019-07-14 12:59] LABS: ABSOLUTE LYMPHOCYTES (AUTO) 0.4 10^3/uL (0.5-4.7); ABSOLUTE MONOCYTES (AUTO) 0.2 10^3/uL (0.1-1.4); BASOPHILS % (AUTO) 0.7 % (0-2); EOSINOPHILS % (AUTO) 0.8 % (0-6); HEMATOCRIT 42.5 % (36.0-47.0); HEMOGLOBIN 14.8 g/dL (12.0-15.5); LYMPHOCYTES % (AUTO) 16.7 % (13-45); MEAN CORPUSCULAR HEMOGLOBIN 33.8 pg (27.0-33.4); MEAN CORPUSCULAR HGB CONC 34.8 g/dL (32.0-36.0); MEAN CORPUSCULAR VOLUME 97 fl (80-97); MONOCYTES % (AUTO) 7.9 % (3-13); RED BLOOD COUNT 4.37 10^6/uL (3.72-5.28); RED CELL DISTRIBUTION WIDTH 14.1 % (11.5-14.0); SEGMENTED NEUTROPHILS % (AUTO) 73.9 % (42-78); TOTAL CELLS COUNTED % (AUTO) 100 %; WHITE BLOOD COUNT 2.7 10^3/uL (4.0-10.5)
--- NOTE | 2019-07-14 12:59 | RADIOLOGY REPORT (SQ) ---
EXAM DESCRIPTION: CHEST SINGLE VIEW IMAGES COMPLETED DATE/TIME: 07/14/2019 12:49 pm REASON FOR STUDY: CHF chest pain peripheral edema COMPARISON: 01/16/2019 EXAM PARAMETERS: NUMBER OF VIEWS: One view. TECHNIQUE: Single frontal radiographic view of the chest acquired. RADIATION DOSE: NA LIMITATIONS: None. FINDINGS: LUNGS AND PLEURA: No opacities, masses or pneumothorax. No pleural effusion. MEDIASTINUM AND HILAR STRUCTURES: No masses. Contour normal. HEART AND VASCULAR STRUCTURES: Heart normal in size. Normal vasculature. BONES: No acute findings. HARDWARE: None in the chest. OTHER: No other significant finding. IMPRESSION: No evidence of acute cardiopulmonary process. Specifically, no evidence of pulmonary ed emma. TECHNICAL DOCUMENTATION: JOB ID: [id number] [employer]- All Rights Reserved Reading location - IP/workstation name: [email or web address]
--- NOTE | 2019-07-14 13:05 | ER Document Report ---
ED General - General Chief Complaint: CHF Exacerbation Stated Complaint: BREATHING PROBLEMS,CHEST PAIN Time Seen by Provider: 07/14/19 11:50 Primary Care Provider: ARLETTE BRADY MD [Primary Care Provider] - Follow up as needed Mode of Arrival: Ambulatory Notes: HPI: Patient is a 63-year-old female with past medical history as recorded including diabetes, thrombocytopenia, leukopenia, and congestive heart failure who states she has had some increased bilateral lower extremity swelling with 40 pound weight gain in the last 4 months. She is followed by Dr. Mohr. No history of myocardial infarction or stents. Patient has had no fevers, or vomiting. She states some increased shortness of breath with ambulation. She already has a hospital bed and elevates her head when she sleeps. She denies any chest pain. She states some mild intermittent back pain that is not new for her. No weakness or numbness of the legs. No fevers or incontinence. ROS: See HPI All other review of systems reviewed and otherwise negative Reviewed vital signs and nursing note as charted by RN. PHYSICAL EXAM: CONSTITUTIONAL: Alert and oriented and responds appropriately to questions. Well-appearing; well-nourished HEAD: Normocephalic; atraumatic EYES: PERRL; Conjunctivae clear, sclerae non-icteric ENT: Normal nose; no rhinorrhea; moist mucous membranes; pharynx without lesions noted NECK: Supple without meningismus; non-tender; no cervical lymphadenopathy, no masses CARD: Regular rate and rhythm; no murmurs; symmetric distal pulses RESP: Normal chest excursion without splinting or tachypnea; breath sounds clear and equal bilaterally; some scattered rales without rhonchi or wheezing ABD/GI: Normal bowel sounds; non-distended; soft, non-tender; no palpable organomegaly or masses BACK: The back appears normal and is non-tender to palpation EXT: Normal ROM in all joints; non-tender to palpation; 2-3+ pitting edema bilaterally SKIN: No acute lesions noted NEURO: CN 2-12 intact; 5/5 bilateral upper and lower extremity strength with sensation intact to light touch PSYCH: The patient's mood and manner are appropriate. Grooming and personal hygiene are appropriate. TRAVEL OUTSIDE OF THE [place] IN LAST 30 DAYS: No - Related Data Allergies/Adverse Reactions: dulaglutide [From [facility]] Allergy (Verified 10/23/18 19:36) exenatide [From Byetta] Allergy (Verified 10/23/18 18:09) Past Medical History - General Information source: Patient - Social History Smoking Status: Former Smoker Frequency of alcohol use: None Drug Abuse: None Family History: Reviewed & Not Pertinent Patient has suicidal ideation: No Patient has homicidal ideation: No - Past Medical History Cardiac Medical History: Reports: Hx Hypercholesterolemia, Hx Hypertension Denies: Hx Atrial Fibrillation, Hx Congestive Heart Failure, Hx Coronary Artery Disease, Hx Heart Attack, Hx Peripheral Vascular Disease, Hx Pulmonary Embolism, Hx Heart Murmur Pulmonary Medical History: Reports: Hx Bronchitis, Hx COPD Denies: Hx Asthma, Hx Pneumonia, Hx Respiratory Failure, Hx Sleep Apnea, Hx Tuberculosis Neurological Medical History: Denies: Hx Cerebrovascular Accident, Hx Seizures Endocrine Medical History: Reports: Hx Diabetes Mellitus Type 2. Denies: Hx Graves' Disease, Hx Hyperthyroidism, Hx Hypothyroidism Renal/ Medical History: Denies: Hx Kidney Stones, Hx Peritoneal Dialysis Malignancy Medical History: Denies: Hx Lung Cancer GI Medical History: Reports: Hx Gastroesophageal Reflux Disease. Denies: Hx Crohn's Disease, Hx Hiatal Hernia, Hx Irritable Bowel, Hx Liver Failure, Hx Pancreatitis, Hx Ulcer Musculoskeletal Medical History: Reports Hx Arthritis - knees, Denies Hx Fibromyalgia, Denies Hx Muscular Dystrophy, Denies Hx Systemic Lupus Erythematosus Traumatic Medical History: Denies: Hx Fractures Past Surgical History: Reports: Hx Hysterectomy, Hx Orthopedic Surgery - bilateral knee replacement; broken wrist. Denies: Hx Appendectomy, Hx Bowel Surgery, Hx Section, Hx Cholecystectomy, Hx Colostomy, Hx Coronary Artery Bypass Graft, Hx Gastric Bypass Surgery, Hx Herniorrhaphy, Hx Mastectomy, Hx Pacemaker, Hx Tonsillectomy, Hx Tubal Ligation - Immunizations Immunizations up to date: Yes Hx Diphtheria, Pertussis, Tetanus Vaccination: Yes Hx Pneumococcal Vaccination: 12/24/14 Physical Exam - Vital signs Vitals: Temp Pulse Resp Pulse Ox 98.5 F 100 22 H 99 07/14/19 11:48 07/14/19 11:48 07/14/19 11:48 07/14/19 11:48 Course - Re-evaluation Re-evalutation: Given the above history and physical exam we will obtain basic labs, BNP, x-ray of the chest, troponin level, and reassess. Patient has no active chest pain. Patient has no focal neurological deficits. Increased edema with weight gain. I do believe PE and dissection to be unlikely. 07/14/19 13:10 EKG shows heart of 93, normal sinus rhythm, LVH, no ST elevation or depression 07/14/19 13:44 Labs as recorded. Persistent lymphopenia and thrombocytopenia. Troponin and BNP as recorded with no obvious signs on x-ray of fluid overload. I have called the patient's calenderer Dr. Mohr to discuss. 07/14/19 14:10 I called and spoke directly to Dr. Mohr. He states that the patient had an echo last month that was normal with only grade 1 diastolic heart failure. He does not believe that the patient requires any change to oral Lasix at this time. She states that she follows oncology for her persistently low white blood cell count and platelet levels. I will provide some nystatin secondary to some skin breakdown to the perineal region with strict return precautions and follow- up with a specialist. - Vital Signs Vital signs: Temp Pulse Resp BP Pulse Ox 98.0 F 100 20 149/78 H 93 07/14/19 12:14 07/14/19 11:48 07/14/19 12:14 07/14/19 12:14 07/14/19 12:14 - Laboratory Result Diagrams: 07/14/19 12:39 07/14/19 12:39 Laboratory results interpreted by me: 07/14/19 07/14/19 07/14/19 12:34 12:39 12:39 WBC 2.7 L MCH 33.8 H RDW 14.1 H Plt Count 61 L Absolute Lymphs (auto) 0.4 L Sodium 134.5 L Creatinine 0.48 L Glucose 254 H AST 40 H Alkaline Phosphatase 210 H Leukocyte Esterase Rfl TRACE H Discharge - Discharge Clinical Impression: Shortness of breath, Weight gain Condition: Good Disposition: HOME, SELF-CARE Additional Instructions: Come back immediately for any worsening shortness of breath, fevers, increased leg swelling, chest pain, vomiting, or any other acute problems. Please follow- up with your primary care physician and specialist as we have discussed. Prescriptions: Nystatin [Mycostatin Cream 15 gm] 1 applic TP BID #15 gm Referrals: ARLETTE BRADY MD [Primary Care Provider] - Follow up as needed
[2019-07-14 13:17] LABS: ALBUMIN 3.7 g/dL (3.5-5.0); ALKALINE PHOSPHATASE 210 U/L (38-126); ANION GAP 7 (5-19); ASPARTATE AMINO TRANSFERASE 40 U/L (14-36); BILIRUBIN,DIRECT 0.1 mg/dL (0.0-0.4); BILIRUBIN,TOTAL 0.9 mg/dL (0.2-1.3); BLOOD UREA NITROGEN 7 mg/dL (7-20); CALCIUM 8.7 mg/dL (8.4-10.2); CARBON DIOXIDE 30 mmol/L (22-30); CHLORIDE 98 mmol/L (98-107); GLUCOSE 254 mg/dL (75-110); POTASSIUM 4.2 mmol/L (3.6-5.0); TOTAL PROTEIN 7.5 g/dL (6.3-8.2)
[2019-07-14 13:18] LABS: PLATELET COUNT 61 10^3/uL (150-450)
[2019-07-14 13:29] LABS: NT PRO BNP 112 pg/mL (<125)
[2019-07-14 13:32] LABS: TROPONIN I < 0.012 ng/mL
[2019-07-14] MEDS ORDERED: NYSTATIN CREAM 15 GM TP ONE (14:16)
--- NOTE | 2019-07-14 22:49 | EKG REPORT ---
SEVERITY:- BORDERLINE ECG - SINUS RHYTHM LVH BY VOLTAGE : Confirmed by: Isra Peterson 14-Jul-2019 22:48:14
== END 2019-07-14 14:37 | disposition home or self-care (01) ==
LOC: ER 11:48
DX: I11.0 Hypertensive heart disease with heart failure (principal); I50.30 Unspecified diastolic (congestive) heart failure; J44.9 Chronic obstructive pulmonary disease, unspecified; D69.6 Thrombocytopenia, unspecified; D72.810 Lymphocytopenia; R63.5 Abnormal weight gain; R06.02 Shortness of breath; E11.9 Type 2 diabetes mellitus without complications; Z87.891 Personal history of nicotine dependence; Z88.8 Allergy status to other drugs, medicaments and biological substances; Z79.899 Other long term (current) drug therapy
CPT/HCPCS: 93005; 99285; 36415; 87086; 85025; 80053; 81001; 84484; 83880; 71045; 93010; J3490

== ENCOUNTER 2019-08-25 19:50 | Emergency (ER) | payer MEDICARE, OTHER, MEDICAID ==
--- NOTE | 2019-08-25 20:46 | ER Document Report ---
ED General - General Chief Complaint: Breathing Difficulty Stated Complaint: DIFFICULTY BREATHING Time Seen by Provider: 08/25/19 20:10 Primary Care Provider: ARLETTE BRADY MD [ACTIVE STAFF] - Follow up as needed Notes: Patient is a 63-year-old female who comes emergency department for chief complaint of nausea, loss of appetite, generalized weakness, and intermittent shortness of breath. She states that she has had the shortness of breath intermittently for a while, she states that over the past 4 months she has gained about 30 to 40 pounds. She denies chest pain, particular abdominal pain, flank pain, fever/chills, headache, dizziness. Past medical history includes morbid obesity, type 2 diabetes on Januvia and insulin, COPD with former smoking (on home inhalers but not on home oxygen), chronic thrombocytopenia following with hematology, and she states she follows with paver installer Dr. Mohr. She denies any cardiac medical history however including GA, stents, and she states that she was told that she did not have congestive heart failure and she was just placed on a fluid pill for her legs. Patient also notes chronic pain management. TRAVEL OUTSIDE OF THE [place] IN LAST 30 DAYS: No - Related Data Allergies/Adverse Reactions: dulaglutide [From Trulicity] Allergy (Verified 08/25/19 20:55) exenatide [From Byetta] Allergy (Verified 08/25/19 20:55) Past Medical History - General Information source: Patient - Social History Smoking Status: Former Smoker Frequency of alcohol use: None Drug Abuse: None Lives with: Family Family History: Reviewed & Not Pertinent - Past Medical History Cardiac Medical History: Reports: Hx Hypercholesterolemia, Hx Hypertension Denies: Hx Atrial Fibrillation, Hx Congestive Heart Failure, Hx Coronary Artery Disease, Hx Heart Attack, Hx Peripheral Vascular Disease, Hx Pulmonary Embolism, Hx Heart Murmur Pulmonary Medical History: Reports: Hx Bronchitis, Hx COPD Denies: Hx Asthma, Hx Pneumonia, Hx Respiratory Failure, Hx Sleep Apnea, Hx Tuberculosis Neurological Medical History: Denies: Hx Cerebrovascular Accident, Hx Seizures Endocrine Medical History: Reports: Hx Diabetes Mellitus Type 2. Denies: Hx Graves' Disease, Hx Hyperthyroidism, Hx Hypothyroidism Renal/ Medical History: Denies: Hx Kidney Stones, Hx Peritoneal Dialysis Malignancy Medical History: Denies: Hx Lung Cancer GI Medical History: Reports: Hx Gastroesophageal Reflux Disease. Denies: Hx Crohn's Disease, Hx Hiatal Hernia, Hx Irritable Bowel, Hx Liver Failure, Hx Pancreatitis, Hx Ulcer Musculoskeletal Medical History: Reports Hx Arthritis - knees, Denies Hx Fibromyalgia, Denies Hx Muscular Dystrophy, Denies Hx Systemic Lupus Erythematosus Traumatic Medical History: Denies: Hx Fractures Past Surgical History: Reports: Hx Hysterectomy, Hx Orthopedic Surgery - bilateral knee replacement; broken wrist. Denies: Hx Appendectomy, Hx Bowel Surgery, Hx Section, Hx Cholecystectomy, Hx Colostomy, Hx Coronary Artery Bypass Graft, Hx Gastric Bypass Surgery, Hx Herniorrhaphy, Hx Mastectomy, Hx Pacemaker, Hx Tonsillectomy, Hx Tubal Ligation - Immunizations Immunizations up to date: Yes Hx Diphtheria, Pertussis, Tetanus Vaccination: Yes Hx Pneumococcal Vaccination: 12/24/14 Review of Systems - Review of Systems Constitutional: No symptoms reported EENT: No symptoms reported Cardiovascular: See HPI Respiratory: See HPI Gastrointestinal: See HPI Genitourinary: No symptoms reported Female Genitourinary: No symptoms reported Musculoskeletal: No symptoms reported Skin: No symptoms reported Hematologic/Lymphatic: No symptoms reported Neurological/Psychological: No symptoms reported Physical Exam - Vital signs Vitals: Temp 97.6 F 08/25/19 20:43 - Notes Notes: GENERAL: Alert, interacts well. No acute distress. HEAD: Normocephalic, atraumatic. EYES: Pupils equal, round, and reactive to light. Extraocular movements intact. ENT: Oral mucosa moist, tongue midline. Oropharynx unremarkable. Airway patent. NECK: Full range of motion. Supple. Trachea midline. No lymphadenopathy. LUNGS: Clear to auscultation bilaterally, no wheezes, rales, or rhonchi. No respiratory distress. Non-tender chest wall. HEART: Regular rate and rhythm. No murmur ABDOMEN: Soft, non-tender. Non-distended. Bowel sounds present in all 4 quadrants. Exam is slightly limited by obesity. GENITOURINARY: Deferred EXTREMITIES: Moves all 4 extremities spontaneously. Scars from bilateral knee replacements. No edema, normal radial and dorsalis pedis pulses bilaterally. No cyanosis. BACK: no cervical, thoracic, lumbar midline tenderness. No saddle anesthesia, normal distal neurovascular exam. Moves all extremities in full range of motion. NEUROLOGICAL: Alert and oriented x3. Normal speech. Cranial nerves II through XI I grossly intact. Strength 5/5 in all extremities. PSYCH: Normal affect, normal mood. SKIN: Warm, dry, normal turgor. No rashes or lesions noted. Course - Re-evaluation Re-evalutation: Patient is extremely talkative. She attempts to tell extremely detailed stories to essentially any staff that walks into the room. She is very well-appearing. Lungs are clear, there is no lower extremity edema, patient is not in any respiratory distress, abdomen is nontender on exam. Patient was given a GI cocktail and afterwards her symptoms did completely resolve. CBC with expected features based on what patient has told me, she frequently has leukopenia and thrombocytopenia. No significant change from prior. Chemistry unremarkable. Troponin indeterminate at 0.044, this will be cycled based on patient's shortness of breath and abdominal pain although patient has not had any chest pain. BNP is not elevated, chest x-ray unremarkable, EKG nonspecific. I discussed results with patient. Recommended cycle troponin because of her indeterminate troponin and symptoms, patient refused. Patient states that she will go see her paver installer tomorrow and she will not stay for this. I did attempt to explain that I am uncertain if she is having an NSTEMI which could cause her to deteriorate and could even be life-threatening. Patient states understanding of this but still states she refuses to stay, she is requesting signed out AGAINST MEDICAL ADVICE. I discussed this again with patient and she continues with her plan. Patient is oriented and appears to have full capacity for decision-making. Patient states she will return if she develops any worsening symptoms and she will see her provider within the next day. Patient discharged AGAINST MEDICAL ADVICE. - Vital Signs Vital signs: Temp Pulse Resp BP Pulse Ox 97.6 F 101 H 24 H 149/81 H 95 08/25/19 20:50 08/25/19 20:50 08/25/19 20:50 08/25/19 20:50 08/25/19 20:50 - Laboratory Result Diagrams: 08/25/19 21:35 08/25/19 21:35 Laboratory results interpreted by me: 08/25/19 08/25/19 08/25/19 21:06 21:35 21:35 WBC 3.8 L RDW 14.4 H Plt Count 72 L Sodium 134.0 L Chloride 96 L Creatinine 0.39 L Glucose 260 H AST 67 H Alkaline Phosphatase 214 H Urine Protein 30 H - EKG Interpretation by Me Additional EKG results interpreted by me: EKG shows sinus rhythm at a rate of 99, QTc 468, left axis deviation. No T wave inversions or ST segment changes in consecutive leads. No significant change from prior. Discharge - Discharge Clinical Impression: Shortness of breath, Nausea Abdominal pain Qualifiers: Abdominal location: generalized Qualified Code(s): R10.84 - Generalized abdominal pain Disposition: AGAINST MEDICAL ADVICE Additional Instructions: Your work-up to this point does not show any definite concerning problems, however you have not completed your work-up today and has signed out AGAINST MEDICAL ADVICE. I cannot guarantee that there is not a dangerous rhythm life- threatening underlying problem causing your symptoms. The recommendation is to follow-up/return immediately to complete your work-up for your shortness of br eath and abdominal pain. Referrals: ARLETTE BRADY MD [ACTIVE STAFF] - Follow up as needed
[2019-08-25 20:58] VITALS: BP 149/81
--- NOTE | 2019-08-25 21:14 | RADIOLOGY REPORT (SQ) ---
EXAM DESCRIPTION: XR CHEST 1 VIEW COMPLETED DATE/TME: 08/25/2019 20:43 CLINICAL HISTORY: 63 years, Female, shortness of breath COMPARISON: Multiple priors, most recent from 07/14/2019 NUMBER OF VIEWS: One TECHNIQUE: Single frontal view of the chest was obtained portably LIMITATIONS: None. FINDINGS: Cardiac and mediastinal contours are stable. Lungs are clear. No pleural effusion or pneumothorax. IMPRESSION: No acute disease. copyright 2010 [employer]- All Rights Reserved
[2019-08-25 21:39] LABS: APPEARANCE,URINE CLEAR; BILIRUBIN,URINE NEGATIVE (NEGATIVE); COLOR,URINE YELLOW; GLUCOSE, URINE NEGATIVE (NEGATIVE); KETONES,URINE NEGATIVE (NEGATIVE); LEUKOCYTE ESTERASE,URINE NEGATIVE (NEGATIVE); NITRITE,URINE NEGATIVE (NEGATIVE); PROTEIN,URINE 30 mg/dL (NEGATIVE); URINE SPECIFIC GRAVITY 1.017; UROBILINOGEN,URINE NEGATIVE mg/dL (<2.0)
[2019-08-25 21:43] LABS: ABSOLUTE LYMPHOCYTES (AUTO) 0.6 10^3/uL (0.5-4.7); ABSOLUTE MONOCYTES (AUTO) 0.3 10^3/uL (0.1-1.4); ABSOLUTE NEUT (AUTO) 2.9 10^3/uL (1.7-8.2); BASOPHILS % (AUTO) 0.6 % (0-2); EOSINOPHILS % (AUTO) 0.7 % (0-6); HEMATOCRIT 42.5 % (36.0-47.0); HEMOGLOBIN 14.5 g/dL (12.0-15.5); LYMPHOCYTES % (AUTO) 15.5 % (13-45); MEAN CORPUSCULAR HEMOGLOBIN 32.9 pg (27.0-33.4); MEAN CORPUSCULAR HGB CONC 34.1 g/dL (32.0-36.0); MEAN CORPUSCULAR VOLUME 97 fl (80-97); MONOCYTES % (AUTO) 7.1 % (3-13); RED CELL DISTRIBUTION WIDTH 14.4 % (11.5-14.0); SEGMENTED NEUTROPHILS % (AUTO) 76.1 % (42-78); TOTAL CELLS COUNTED % (AUTO) 100 %; WHITE BLOOD COUNT 3.8 10^3/uL (4.0-10.5)
[2019-08-25 21:57] LABS: ALBUMIN 3.7 g/dL (3.5-5.0); ALKALINE PHOSPHATASE 214 U/L (38-126); ANION GAP 8 (5-19); ASPARTATE AMINO TRANSFERASE 67 U/L (14-36); BILIRUBIN,TOTAL 1.2 mg/dL (0.2-1.3); BLOOD UREA NITROGEN 7 mg/dL (7-20); CALCIUM 8.6 mg/dL (8.4-10.2); CARBON DIOXIDE 30 mmol/L (22-30); CHLORIDE 96 mmol/L (98-107); GLUCOSE 260 mg/dL (75-110); POTASSIUM 4.1 mmol/L (3.6-5.0); TOTAL PROTEIN 7.9 g/dL (6.3-8.2)
[2019-08-25 22:14] LABS: TROPONIN I 0.044 ng/mL
[2019-08-25 22:17] LABS: PLATELET COUNT 72 10^3/uL (150-450)
--- NOTE | 2019-08-25 23:02 | EKG REPORT ---
SEVERITY:- BORDERLINE ECG - SINUS RHYTHM CONSIDER ANTERIOR INFARCT : Confirmed by: Isra Peterson 25-Aug-2019 23:02:13
[2019-08-25] MEDS ORDERED: MAG HYDROX/AL HYDROX/SIMETH SUSP 30 ML UDCUP PO ONE (23:15)
[2019-08-25] MEDS ORDERED: LIDOCAINE 2% VISCOUS SOLN 15 ML UDCUP PO ONE (23:15)
[2019-08-25] MEDS ORDERED: METOCLOPRAMIDE HCL ORAL SOLN 10 MG/10 ML UDCUP PO ONE (23:15)
== END 2019-08-26 00:01 | disposition left against medical advice (07) ==
LOC: ER 19:50
DX: J44.9 Chronic obstructive pulmonary disease, unspecified (principal); R10.84 Generalized abdominal pain; R06.02 Shortness of breath; R11.0 Nausea; R63.0 Anorexia; R53.1 Weakness; R63.5 Abnormal weight gain; I10 Essential (primary) hypertension; E11.9 Type 2 diabetes mellitus without complications; G89.29 Other chronic pain; Z79.899 Other long term (current) drug therapy; Z79.4 Long term (current) use of insulin; Z87.891 Personal history of nicotine dependence; Z88.8 Allergy status to other drugs, medicaments and biological substances
CPT/HCPCS: 93005; 99285; 36415; 83690; 80053; 81001; 84484; 83880; 71045; 93010; 85025; J3490; A9270 ×2

== ENCOUNTER 2020-02-02 06:20 | Emergency (ER) | payer MEDICARE, OTHER, MEDICAID ==
[2020-02-02] MEDS ORDERED: ONDANSETRON HCL INJ/PF 4 MG/2 ML SDV IV ONE (08:25)
[2020-02-02] MEDS ORDERED: NORMAL SALINE 1000 ML 1,000 ML IV ONE (08:25)
--- NOTE | 2020-02-02 08:47 | ER Document Report ---
ED GI/ - General Chief Complaint: Nausea/Vomiting Stated Complaint: VOMITING/NOT ABLE TO EAT Time Seen by Provider: 02/02/20 08:05 Primary Care Provider: SONA TAPIA MD [Primary Care Provider] - Follow up as needed ENDY CAI MD [ACTIVE STAFF] - Follow up as needed JUVE HUDSON MD [ACTIVE PROVISIONAL STAFF] - Follow up as needed Notes: Patient is a 64-year-old female presents emergency department with a chief complaint of nausea, vomiting, and not having any appetite. Patient states that she has not felt well for the past 2 weeks. States that she has not eaten very much. States that she has not had very many bowel movements, but still has some bowel movements. Patient would like to be tested for COVID-19. TRAVEL OUTSIDE OF THE [place] IN LAST 30 DAYS: No - Related Data Allergies/Adverse Reactions: dulaglutide [From Trulicity] Allergy (Verified 02/02/20 09:36) exenatide [From Byetta] Allergy (Verified 02/02/20 09:36) Home Medications: all meds in computer Past Medical History - Social History Smoking Status: Former Smoker Family History: Reviewed & Not Pertinent - Past Medical History Cardiac Medical History: Reports: Hx Hypercholesterolemia, Hx Hypertension Denies: Hx Atrial Fibrillation, Hx Congestive Heart Failure, Hx Coronary Artery Disease, Hx Heart Attack, Hx Peripheral Vascular Disease, Hx Pulmonary Embolism, Hx Heart Murmur Pulmonary Medical History: Reports: Hx Bronchitis, Hx COPD Denies: Hx Asthma, Hx Pneumonia, Hx Respiratory Failure, Hx Sleep Apnea, Hx Tuberculosis Neurological Medical History: Denies: Hx Cerebrovascular Accident, Hx Seizures Endocrine Medical History: Reports: Hx Diabetes Mellitus Type 2. Denies: Hx Graves' Disease, Hx Hyperthyroidism, Hx Hypothyroidism Renal/ Medical History: Denies: Hx Kidney Stones, Hx Peritoneal Dialysis Malignancy Medical History: Denies: Hx Lung Cancer GI Medical History: Reports: Hx Gastroesophageal Reflux Disease. Denies: Hx Crohn's Disease, Hx Hiatal Hernia, Hx Irritable Bowel, Hx Liver Failure, Hx Pancreatitis, Hx Ulcer Musculoskeletal Medical History: Reports Hx Arthritis - knees, Denies Hx Fib romyalgia, Denies Hx Muscular Dystrophy, Denies Hx Systemic Lupus Erythematosus Traumatic Medical History: Denies: Hx Fractures Past Surgical History: Reports: Hx Hysterectomy, Hx Orthopedic Surgery - bilateral knee replacement; broken wrist. Denies: Hx Appendectomy, Hx Bowel Surgery, Hx Section, Hx Cholecystectomy, Hx Colostomy, Hx Coronary Artery Bypass Graft, Hx Gastric Bypass Surgery, Hx Herniorrhaphy, Hx Mastectomy, Hx Pacemaker, Hx Tonsillectomy, Hx Tubal Ligation - Immunizations Immunizations up to date: Yes Hx Diphtheria, Pertussis, Tetanus Vaccination: Yes Hx Pneumococcal Vaccination: 12/24/14 Review of Systems - Review of Systems Notes: REVIEW OF SYSTEMS: CONSTITUTIONAL : Denies recent unintentional weight loss. See HPI. EENT: Denies eye, ear, throat, or mouth pain, discharge, or symptoms. Denies nasal or sinus congestion. CARDIOVASCULAR: Denies chest pain. RESPIRATORY: Denies shortness of breath, cough, congestion, difficulty breathing, or wheezing. GASTROINTESTINAL: See HPI. GENITOURINARY: Denies difficulty urinating, burning, blood in urine, urgency or frequency. MUSCULOSKELETAL: Denies neck and back pain. Denies joint pain or swelling. SKIN: Denies rash, itchiness, or lesions HEMATOLOGIC : Denies easy bruising or bleeding. LYMPHATIC: Denies swollen, painful, enlarged glands. NEUROLOGICAL: Denies no numbness or tingling denies weakness. Denies headache. Denies altered mental status. Denies alteration in speech. PSYCHIATRIC: Denies stress, anxiety, alteration in sleep patterns, or depression. All other systems reviewed and negative. Physical Exam - Vital signs Vitals: Temp Pulse Resp BP Pulse Ox 99.3 F 104 H 24 H 128/74 H 99 02/02/20 06:43 02/02/20 06:43 02/02/20 06:43 02/02/20 06:43 02/02/20 06:43 - Notes Notes: PHYSICAL EXAMINATION: GENERAL: Appears well, healthy, well-nourished, no acute distress. HEAD: Normocephalic, atraumatic. EYES: PERRL, conjunctiva normal, all extraocular movements intact, sclera nonicteric ENT: Moist mucous membranes. NECK: Supple, no noticeable swelling, redness, rash. Normal range of motion. LUNGS: Equal breath sounds bilaterally and clear to auscultation. No wheezes rales or rhonchi. CARDIOVASCULAR: S1-S2, slightly tachycardic, regular rhythm. Radial pulses 2+, normal. ABDOMEN: Normoactive bowel sounds. Soft, nontender, no guarding, no rebound tenderness, and no masses palpated. EXTREMITIES: Normal strength and range of motion, no pitting or edema. No cyanosis. NEUROLOGICAL: Moves all extremities upon command. Strength 5/5 in all extremities. PSYCH: Normal mood, normal affect. SKIN: Warm, dry. No rash, lesions, ulcerations noted. Normal skin turgor. Course - Re-evaluation Re-evalutation: 02/02/20 12:05 Hematology shows a white blood cell count of 2.4, which is patient's normal. Hemoglobin is 16.2, most likely consistent with dehydration. Sodium was 134.9, which she received IV fluids. Her CO2 was 21, which again she received IV fluids. Urinalysis is showing protein in her urine, consistent with dehydration. Influenza and strep tests are negative. The patient was evaluated during the global COVID-19 pandemic and that diagnosis was suspected/considered upon their initial presentation. Their evaluation, treatment and testing was co nsistent with current guidelines for patients who present with complaints or symptoms that may be related to COVID-19. Follow-up precautions were given. Verbal discharge instructions were given to the patient. They verbalized understanding. They are stable for discharge. - Vital Signs Vital signs: Temp Pulse Resp BP Pulse Ox 99.3 F 95 20 129/86 H 98 02/02/20 06:43 02/02/20 12:42 02/02/20 12:42 02/02/20 12:42 02/02/20 12:42 - Laboratory Result Diagrams: 02/02/20 10:55 02/02/20 10:18 Laboratory results interpreted by me: 02/02/20 02/02/20 02/02/20 06:31 08:29 10:18 WBC Hgb RDW Plt Count Dane % (Auto) Absolute Neuts (auto) Sodium 134.9 L Carbon Dioxide 21 L Glucose 143 H POC Glucose 173 H Calcium 8.0 L AST 97 H ALT 40 H Alkaline Phosphatase 147 H Urine Protein 100 H Urine Ketones 20 H Urine Urobilinogen 2.0 H Ur Leukocyte Esterase TRACE H 02/02/20 10:55 WBC 2.4 L Hgb 16.2 H RDW 15.2 H Plt Count 62 L Dane % (Auto) 13.3 H Absolute Neuts (auto) 1.5 L Sodium Carbon Dioxide Glucose POC Glucose Calcium AST ALT Alkaline Phosphatase Urine Protein Urine Ketones Urine Urobilinogen Ur Leukocyte Esterase Discharge - Discharge Clinical Impression: Poor appetite, Suspected COVID-19 virus infection Nausea and vomiting Qualifiers: Vomiting type: unspecified Vomiting Intractability: unspecified Qualified Code(s): R11.2 - Nausea with vomiting, unspecified Condition: Stable Disposition: HOME, SELF-CARE Additional Instructions: As a person under investigation for COVID-19, the [facility] (division on public health) advises you to adhere to the following guidance until your test results are reported to you. If your test result is positive, you will receive additional information from your provider and your local health department at that time. Remain at home until you are cleared by the health provider or public health authorities. Keep a log of visitors to your home, notify any visitors to your home of your isolation status. If you plan to move to a new address or leave the [facility], notify the local health department in your [facility]. Call your Doctor or seek care if you have an urgent medical need. Before seeking medical care, call him to get instructions from the provider before arriving at the medical office, clinic, or hospital. Notify them that you are being tested for the virus (COVID-19) so that arrangements can be made, as necessary, to prevent transmission to others in the healthcare setting. Next, notify the local health department in your county. Take the nausea medication as needed. Eat small, frequent meals. Prescriptions: Ondansetron [Zofran Odt 4 mg Tablet] 1 - 2 tab PO Q4H PRN #30 tab.rapdis PRN Reason: For Nausea/Vomiting Referrals: JUVE HUDSON MD [ACTIVE PROVISIONAL STAFF] - Follow up as needed SONA TAPIA MD [Primary Care Provider] - Follow up as needed ENDY CAI MD [ACTIVE STAFF] - Follow up as needed
[2020-02-02 08:53] LABS: APPEARANCE,URINE SLIGHTLY-CLOUDY; BILIRUBIN,URINE NEGATIVE (NEGATIVE); COLOR,URINE AMBER; GLUCOSE, URINE NEGATIVE (NEGATIVE); KETONES,URINE 20 mg/dL (NEGATIVE); LEUKOCYTE ESTERASE,URINE TRACE (NEGATIVE); NITRITE,URINE NEGATIVE (NEGATIVE); PROTEIN,URINE 100 mg/dL (NEGATIVE); URINE SPECIFIC GRAVITY 1.027
[2020-02-02 09:55] LABS: A TYPE INFLUENZA AG NEGATIVE (NEGATIVE)
[2020-02-02 09:56] LABS: B INFLUENZA AG NEGATIVE (NEGATIVE)
[2020-02-02 10:52] LABS: ALBUMIN 3.5 g/dL (3.5-5.0); ALKALINE PHOSPHATASE 147 U/L (38-126); ANION GAP 14 (5-19); ASPARTATE AMINO TRANSFERASE 97 U/L (14-36); BILIRUBIN,DIRECT 0.3 mg/dL (0.0-0.4); BILIRUBIN,TOTAL 0.9 mg/dL (0.2-1.3); BLOOD UREA NITROGEN 10 mg/dL (7-20); CARBON DIOXIDE 21 mmol/L (22-30); CHLORIDE 100 mmol/L (98-107); GLUCOSE 143 mg/dL (75-110); POTASSIUM 4.1 mmol/L (3.6-5.0); TOTAL PROTEIN 7.7 g/dL (6.3-8.2)
[2020-02-02 11:09] LABS: ABSOLUTE LYMPHOCYTES (AUTO) 0.5 10^3/uL (0.5-4.7); ABSOLUTE MONOCYTES (AUTO) 0.3 10^3/uL (0.1-1.4); ABSOLUTE NEUT (AUTO) 1.5 10^3/uL (1.7-8.2); BASOPHILS % (AUTO) 0.7 % (0-2); EOSINOPHILS % (AUTO) 0.1 % (0-6); HEMATOCRIT 46.9 % (36.0-47.0); HEMOGLOBIN 16.2 g/dL (12.0-15.5); LYMPHOCYTES % (AUTO) 21.1 % (13-45); MEAN CORPUSCULAR HEMOGLOBIN 32.4 pg (27.0-33.4); MEAN CORPUSCULAR HGB CONC 34.6 g/dL (32.0-36.0); MEAN CORPUSCULAR VOLUME 94 fl (80-97); MONOCYTES % (AUTO) 13.3 % (3-13); RED CELL DISTRIBUTION WIDTH 15.2 % (11.5-14.0); SEGMENTED NEUTROPHILS % (AUTO) 64.8 % (42-78); TOTAL CELLS COUNTED % (AUTO) 100 %; WHITE BLOOD COUNT 2.4 10^3/uL (4.0-10.5)
[2020-02-02 11:37] LABS: PLATELET COUNT 62 10^3/uL (150-450)
[2020-02-02 12:43] VITALS: BP 129/86
== END 2020-02-02 12:43 | disposition home or self-care (01) ==
LOC: ER 06:20
DX: U07.1 COVID-19 (principal); R11.2 Nausea with vomiting, unspecified; R63.0 Anorexia; I10 Essential (primary) hypertension; J44.9 Chronic obstructive pulmonary disease, unspecified; E11.9 Type 2 diabetes mellitus without complications; Z88.8 Allergy status to other drugs, medicaments and biological substances
CPT/HCPCS: 99284; 96361; 96374; 36415; 87070; 87086; 87880; 82962; 83690; 85025; 87088; 80053; 81001; 87804; U0003; J2405; J7030; C9803; 87635

== ENCOUNTER 2020-04-19 10:03 | Emergency (ER) | payer MEDICARE, MEDICAID ==
[2020-04-19] MEDS ORDERED: OXYCODONE HCL IR 5 MG TABLET PO ONE (10:15)
[2020-04-19 10:28] VITALS: BP 148/78
--- NOTE | 2020-04-19 11:01 | RADIOLOGY REPORT (SQ) ---
EXAM DESCRIPTION: CT HEAD WITHOUT IMAGES COMPLETED DATE/TIME: 04/19/2020 10:52 am REASON FOR STUDY: right facial droop COMPARISON: None. TECHNIQUE: Axial images acquired through the brain without intravenous contrast. Images reviewed wi th bone, brain and subdural windows. Additional sagittal and coronal reconstructions were generated. Images stored on PACS. All CT scanners at this facility use dose modulation, iterative reconstruction, and/or weight based d osing when appropriate to reduce radiation dose to as low as reasonably achievable (ALARA). [facility]: Dose Right [facility]: CareDose [facility]: Dose Right [facility]: Teradose 4D [facility]: Smart Garmor RADIATION DOSE: CT Rad equipment meets quality standard of care and radiation dose reduction techniq ues were employed. CTDIvol: 53.2 mGy. DLP: 964 mGy-cm. mGy. LIMITATIONS: None. FINDINGS: VENTRICLES: Normal size and contour. CEREBRUM: No masses. No hemorrhage. No midline shift. No evidence for acute infarction. Normal gra y/white matter differentiation. No areas of low density in the white matter. CEREBELLUM: No masses. No hemorrhage. No alteration of density. No evidence for acute infarction. EXTRAAXIAL SPACES: No fluid collections. No masses. ORBITS AND GLOBE: No intra- or extraconal masses. Normal contour of globe without masses. CALVARIUM: No fracture. PARANASAL SINUSES: No fluid or mucosal thickening. SOFT TISSUES: No mass or hematoma. OTHER: No other significant finding. IMPRESSION: NORMAL BRAIN CT WITHOUT CONTRAST. EVIDENCE OF ACUTE STROKE: NO. COMMENT: Quality ID # [id number]: Final reports with documentation of one or more dose reduction techniques (e.g., Automated exposure control, adjustment of the mA and/or kV according to patient size, use of iterative reconstruction technique) TECHNICAL DOCUMENTATION: JOB ID: [id number] 2010 [employer]- All Rights Reserved Reading location - IP/workstation name: [email or web address]
--- NOTE | 2020-04-19 11:43 | ER Document Report ---
ED General - General Chief Complaint: facial drooping Stated Complaint: FACIAL DROOP Time Seen by Provider: 04/19/20 10:08 Primary Care Provider: SONA TAPIA MD [Primary Care Provider] - Follow up as needed Mode of Arrival: Stretcher Information source: Patient TRAVEL OUTSIDE OF THE [place] IN LAST 30 DAYS: No - HPI Notes: Patient presents with right-sided facial weakness. She states it started yesterday morning. She states she does have some right-sided headache as well. This headache appears to be mild and constant. Is throbbing sensation. Nothing makes it better or worse. She denies any previous history of similar symptoms. No history of strokes. She states she has noticed that her speech has had a little slurring because she cannot coordinate her mouth to close that watered trips out of the right side. No problems moving the arms or legs. No new problems with vision. 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 No trauma. - Related Data Allergies/Adverse Reactions: dulaglutide [From Trulicity] Allergy (Verified 04/19/20 10:28) exenatide [From Byetta] Allergy (Verified 04/19/20 10:28) Past Medical History - General Information source: Patient - Social History Smoking Status: Never Smoker Frequency of alcohol use: None Drug Abuse: None Family History: Reviewed & Not Pertinent - Past Medical History Cardiac Medical History: Reports: Hx Hypercholesterolemia, Hx Hypertension Denies: Hx Atrial Fibrillation, Hx Congestive Heart Failure, Hx Coronary Artery Disease, Hx Heart Attack, Hx Peripheral Vascular Disease, Hx Pulmonary Embolism, Hx Heart Murmur Pulmonary Medical History: Reports: Hx Bronchitis, Hx COPD Denies: Hx Asthma, Hx Pneumonia, Hx Respiratory Failure, Hx Sleep Apnea, Hx Tuberculosis Neurological Medical History: Denies: Hx Cerebrovascular Accident, Hx Seizures Endocrine Medical History: Reports: Hx Diabetes Mellitus Type 2. Denies: Hx Graves' Disease, Hx Hyperthyroidism, Hx Hypothyroidism Renal/ Medical History: Denies: Hx Kidney Stones, Hx Peritoneal Dialysis Malignancy Medical History: Denies: Hx Lung Cancer GI Medical History: Reports: Hx Gastroesophageal Reflux Disease. Denies: Hx Crohn's Disease, Hx Hiatal Hernia, Hx Irritable Bowel, Hx Liver Failure, Hx Pancreatitis, Hx Ulcer Musculoskeletal Medical History: Reports Hx Arthritis - knees, Denies Hx Fibromyalgia, Denies Hx Muscular Dystrophy, Denies Hx Systemic Lupus Erythematosus Traumatic Medical History: Denies: Hx Fractures Past Surgical History: Reports: Hx Hysterectomy, Hx Orthopedic Surgery - bilateral knee replacement; broken wrist. Denies: Hx Appendectomy, Hx Bowel Surgery, Hx Section, Hx Cholecystectomy, Hx Colostomy, Hx Coronary Artery Bypass Graft, Hx Gastric Bypass Surgery, Hx Herniorrhaphy, Hx Mastectomy, Hx Pacemaker, Hx Tonsillectomy, Hx Tubal Ligation - Immunizations Immunizations up to date: Yes Hx Diphtheria, Pertussis, Tetanus Vaccination: Yes Hx Pneumococcal Vaccination: 12/24/14 Review of Systems - Review of Systems Constitutional: denies: Chills, Fever Respiratory: denies: Cough, Short of breath Gastrointestinal: denies: Diarrhea, Vomiting -: Yes All other systems reviewed and negative Physical Exam - Vital signs Vitals: Pulse Resp BP Pulse Ox 94 18 148/78 H 97 04/19/20 10:22 04/19/20 10:22 04/19/20 10:22 04/19/20 10:22 Interpretation: Normal - General General appearance: Appears well, Alert - HEENT Head: Normocephalic, Atraumatic Eyes: Normal Pupils: PERRL - Respiratory Respiratory status: No respiratory distress Chest status: Nontender Breath sounds: Normal Chest palpation: Normal - Cardiovascular Rhythm: Regular Heart sounds: Normal auscultation Murmur: No - Abdominal Inspection: Normal Distension: No distension Bowel sounds: Normal Tenderness: Nontender Organomegaly: No organomegaly - Back Back: Normal, Nontender - Extremities General upper extremity: Normal inspection, Nontender, Normal color, Normal ROM, Normal temperature General lower extremity: Normal inspection, Nontender, Normal color, Normal ROM, Normal temperature, Normal weight bearing. No: Ariadne's sign - Neurological Neuro grossly intact: Yes Cognition: Normal Orientation: AAOx4 Dash Coma Scale Eye Opening: Spontaneous Thorp Coma Scale Verbal: Oriented Thorp Coma Scale Motor: Obeys Commands Thorp Coma Scale Total: 15 Cranial nerves: Facial palsy. No: Forehead sparing, Gaze palsy, Tongue deviation Motor strength normal: LUE, RUE, LLE, RLE Additional motor exam normals: Equal staff rn. No: Pronator drift Sensory: Normal - Psychological Associated symptoms: Normal affect, Normal mood - Skin Skin Temperature: Warm Skin Moisture: Dry Skin Color: Normal Course - Re-evaluation Re-evalutation: 04/19/20 11:41 Patient presents with a presentation and exam that is consistent with Solo's palsy. CT is unremarkable as well. I will discharge the patient home with antivirals and steroids. - Vital Signs Vital signs: Temp Pulse Resp BP Pulse Ox 97.3 F 94 18 148/78 H 97 04/19/20 10:32 04/19/20 10:22 04/19/20 10:22 04/19/20 10:22 04/19/20 10:22 - Laboratory Results Critical Laboratory Results Reviewed: No Critical Results - Radiology Results Critical Radiology Results Reviewed: No Critical Results Discharge - Discharge Clinical Impression: Solo's palsy Condition: Stable Disposition: HOME, SELF-CARE Instructions: Solo's Palsy ([facility]) Additional Instructions: Please follow-up with your primary doctor within 1 week. Prescriptions: Prednisone [Deltasone 20 mg Tablet] 3 tab PO DAILY 7 Days #21 tablet Valacyclovir HCl [Valacyclovir] 1,000 mg PO TID 7 Days #21 tablet Forms: Return to Work Referrals: SONA TAPIA MD [Primary Care Provider] - Follow up in 1 week
--- NOTE | 2020-04-19 16:54 | EKG REPORT ---
SEVERITY:- BORDERLINE ECG - SINUS RHYTHM LVH BY VOLTAGE : Confirmed by: Jaden Guzman MD 19-Apr-2020 16:53:56
== END 2020-04-19 12:23 | disposition home or self-care (01) ==
LOC: ER 10:03
DX: G51.0 Bell's palsy (principal); R51.9 Headache, unspecified; Z88.8 Allergy status to other drugs, medicaments and biological substances; H54.62 Unqualified visual loss, left eye, normal vision right eye; I10 Essential (primary) hypertension; J44.9 Chronic obstructive pulmonary disease, unspecified; E11.9 Type 2 diabetes mellitus without complications
CPT/HCPCS: 93005; 99284; 70450; 93010; A9270